=== PATIENT | female | born 1960 | race Caucasian/White ===

== ENCOUNTER 2016-03-11 09:17 | Emergency (ER) | payer OTHER ==
[2016-03-11] VITALS (7 sets, daily range): BP systolic 106–127; BP diastolic 41–65; PULSE 67–95; RESP 13–18; O2SAT 89–99
[~2016-03-11] VITALS: Ht 162.6 cm; Wt 50.9 kg
[~2016-03-11 09:17] MED LIST: ALBU8.5H2 INHALATION; EPIN0.3P2 IJ; FLUT16SP NS; OXYC5TAB72 PO; PRAM0.252 PO
--- NOTE | 2016-03-11 09:17 | ED.REPORT ---
HPI-Chest Pain 40 and Over Date of Service Mar 11, 2016 ED Provider: Gregory Teddy Patient is a 55 year old female with a history of stroke and CAD who presents to the ED via EMS complaining of chest pain. Associated symptoms include RUQ pain, L arm swelling, and palpitations. She reports that she recently had the flu and has had diarrhea and vomiting. She was given 4 Zofran, 324 aspirin, 1 nitro, and 50 fentanyl en route. She denies a previous MO but did have a stroke 3 yrs ago. She has a history of alcoholism and reports having a few mixed drinks last night. Nursing Notes Stated Complaint: CHEST PAIN Nursing Notes Reviewed: Yes Allergies: Coded Allergies: neomycin (Verified Allergy, Unknown, 03/11/16) Scheduled PRN Albuterol HFA (Proair HFA) 8.5 Gm Hfa.aer.ad 2 PUFFS INHALATION Q4H PRN PRN For Shortness of Breath Epinephrine (Epipen 2-Titus) 0.3 Mg/0.3 Ml Auto.injct 0.3 MG IJ PRN For Anaphyllaxis Fluticasone Propionate (Fluticasone Propionate Nasal) 16 Gm [place].susp 2 SPRAY NS BID PRN PRN allergy sx Pramipexole Dihydrochloride (Mirapex) 0.25 Mg Tablet 0.25-0.5 MG PO HS PRN PRN restless legs oxyCODONE (oxyCODONE) 5 Mg Tablet 5 MG PO Q8H PRN PRN For Pain General Time Seen by MD: 09:18 Chief Complaint Chest pain Hx Obtained From: Patient, EMS Arrived By: Ambulance Sudden in Onset?: Yes Onset Occurred: Onset unknown Risk Factors )( CAD Risk Stratification No Diabetes mellitus, No Hyperlipidemia, No Hypertension Risk factors reviewed )( TAD Risk Stratification No Hypertension, No Risk factors reviewed )( PE Risk Stratification No , No Previous DVT Risk factors reviewed Past Medical History Past Medical History Tailbone fracture hernia stroke 72% carotid artery blockage Reports: Asthma, Coronary artery disease Past Surgical History Hernia repair R ovarian surg. Reports: Tubal ligation Smoking History Current Every Day Smoker Social History Ex-fidaphnie Mayer Alcohol Use: >5 per day Drug Use: Denies drug use Ambulatory Status Independent Review of Systems Constitutional: Denies: Chills, Fever Cardiovascular: Reports: Chest pain, Palpitations GI: Reports: Abdominal pain, Diarrhea, Vomiting Musculoskeletal: Reports: Extremity swelling (L arm) Complete sys rev & neg: except as marked. Physical Exam Initial Vital Signs Vital Signs (First) Date Time Temp Pulse Resp B/P Pulse Ox O2 Delivery O2 Flow Rate FiO2 03/11/16 09:22 36.5 84 18 117/65 96 Room Air 03/11/16 10:08 3 Initial VS: Reviewed Head / Eyes: Atraumatic, Normocephalic Neck: Full range of motion Skin: Warm, Dry General/Constitutional: Well developed Appearance / Presentation: Positive: Intoxicated Respiratory / Chest: No respiratory distress Mild chest wall tenderness Cardiovascular: Heart rate NL, Regular rhythm, Heart sounds NL Tenderness/Guarding/Rebound: Positive: Guarding voluntary, Tender RUQ... Interpretation & Diagnostics Lab Results Interpretation Result Diagram: 03/11/16 0926 03/11/16 0926 Test 03/11/16 09:26 03/11/16 09:33 03/11/16 14:00 White Blood Count 8.5th/mm3 (3.8-10.1) Red Blood Count 4.34mil/mm3 (3.90-5.20) Hemoglobin 13.9g/dL (12.0-15.6) Hematocrit 41.1% (35.0-46.0) Mean Corpuscular Volume 94.7fL (81-100) Mean Corpuscular Hemoglobin 32.0pg (27.0-35.0) Mean Corpuscular Hemoglobin Concent 33.8% (32.0-37.0) Red Cell Distribution Width 13.7% (12.3-15.4) Platelet Count 215bil/L (150-400) Neutrophils (%) (Auto) 69.1% (40-74) Lymphocytes (%) (Auto) 22.7% (14-46) Monocytes (%) (Auto) 7.2% (4-12) Eosinophils (%) (Auto) 0.6% (0-5) Basophils (%) (Auto) 0.2% (0-3) D-Dimer 0.5mg/L (<0.50) Sodium Level 136mEq/L (134-144) Potassium Level 3.9mEq/L (3.5-5.2) Chloride Level 100mEq/L (97-108) Carbon Dioxide Level 25mmol/L (18-29) Blood Urea Nitrogen 10mg/dL (6-24) Creatinine 0.55mg/dL (0.57-1.00) Estimat Glomerular Filtration Rate 164mL/min (>59) Glucose Level 114mg/dL (60-99) Calcium Level 8.4mg/dL (8.5-10.1) Magnesium Level 1.9mg/dL (1.6-2.6) Total Bilirubin 0.2mg/dL (0.0-1.2) Aspartate Amino Transf (AST/SGOT) 46U/L (0-50) Alanine Aminotransferase (ALT/SGPT) 66U/L (0-32) Alkaline Phosphatase 41U/L (25-150) Total Protein 6.6g/dL (6.4-8.4) Albumin 3.8g/dL (3.4-5.0) Lipase 12U/L (13-60) Acetaminophen Level < 15.0ug/mL Rx (10-25) Lactic Acid Level 0.8mmol/L (0.4-2.0) Alcohol, Quantitative < 10mg/dL (0-10) Total Creatine Kinase 74U/L (21-215) Troponin T < 0.010ug/L (0.0-0.011) ECG Interpretation ECG Interpretation: Sinus rate 69 no abnormalities Time: 09:37 Interpreted by: ED physician ECG Interpretation: Sinus rate 71. No abnormalities Time: 13:33 Interpreted by: ED physician X-Ray Chest Interpretation Chest Xray Interpretation: IMPRESSION: No acute cardiopulmonary findings. Dictated by: Narda Plascencia M.D. on 03/11/2016 at 10:06 Approved by: Narda Plascencia M.D. on 03/11/2016 at 10:06 View: Portable, 1 view Interpretation / Wet Read by: Interpret - Radiologist CT Abd / Pelvis Interpretation IMPRESSION: 1. Circumferential wall thickening involving several proximal loops of small bowel compatible with nonspecific enteritis. 2. Hepatic steatosis. 3. Moderate fecal loading throughout the colon. Please correlate with clinical data. 4. No free fluid or air. 5. No dilated loops of bowel. 6. Visualized appendix is normal. Dictated by: Annita Mendenhall MD, PhD on 03/11/2016 at 12:58 Approved by: Annita Mendenhall MD, PhD on 03/11/2016 at 12:58 Study type: Abdominal CT IV contrast Interpretation / Wet Read by: Interpret - Radiologist Re-Eval/Medical Decision Med Decision/Clinical Course Chest pain and abdominal pain of unclear etiology, consistent with acute MO or pulmonary embolism. Patient seemed to be more focused on her chest however recurrently her abdomen seemed to be tender on exam. CT unremarkable. Patient will be discharged. Overall she is feeling better and agrees with the discharge plan. Return precautions given Time of Eval: 10:13 Re-Evaluation/Progress Note: Rechecked patient. She continues to deny cough or cold symptoms and still endorses chest and abdominal pain. Time of Eval: 15:00 Patient Status: Condition improved Re-Evaluation/Progress Note: Patient is able to ambulate without assistance or shortness of breath. Discussed plan fro discharge. Patient understands and agrees with plan. All questions addressed at this time. Counseled Regarding: Diagnosis, Lab results, Need for follow-up, When/why to return to ED Discharge & Departure Primary Impression: Chest pain Additional Impression: Abdominal pain Disposition: Home Discharge Condition All VS Reviewed: Yes Condition: Improved Additional Instructions: We are so sorry that you are having pain. Overall no life-threatening cause can be found for your symptoms. Continue taking your other medications as prescribed. Follow-up with your regular doctor for discussion of cardiac stress testing and further evaluation of your symptoms. Return to ER as needed if worse. Referrals: Carmel Medellin (PCP) Scribe Attestation Portions of this note were transcribed by Jenny Juárez. I, Dr. Jenkins personally performed the history, physical exam and medical decision-making; I reviewed and confirmed the accuracy of the information in the transcribed note. Signed by: Jenny Juárez 03/11/16, 1531 copies to: Carmel Medellin Timothy S DO Mar 11, 2016 09:17 JENNY JUÁREZ Mar 11, 2016 09:30
[2016-03-11] MEDS ORDERED: 0.9% Sodium Chloride 1,000 ML IV ONE (09:23)
[2016-03-11] MEDS ORDERED: Alum-Mag Hydrox-Simeth 30 mL Suspension PO ONE (09:25)
[2016-03-11] MEDS ORDERED: Ondansetron 2 mg/mL 2 mL Inj IVPUSH PRN (09:25)
[2016-03-11 09:34] LABS: BASOPHILS % (AUTO) 0.2 % (0-3); EOSINOPHILS % (AUTO) 0.6 % (0-5); MONOCYTES % (AUTO) 7.2 % (4-12); Mean Corpuscular Volume 94.7 fL (81-100); NEUTROPHILS % (AUTO) 69.1 % (40-74); Platelet Count 215 bil/L (150-400)
--- NOTE | 2016-03-11 10:08 | DRSVH ---
PROCEDURE: X-RAY CHEST ONE VIEW, PORTABLE ([id number]) INDICATIONS: chest pain TECHNIQUE: One view of the chest was acquired. COMPARISON: [facility], , CHEST 1VW (PORTABLE), 11/29/2013, 8:56. FINDINGS: Surgical changes and devices: None. Lungs and pleura: No pleural effusions or pneumothorax. Lungs are clear. Mediastinum: Mediastinal contours appear normal. Heart size is normal. Bones and chest wall: No suspicious bony lesions. Overlying soft tissues appear unremarkable. IMPRESSION: No acute cardiopulmonary findings. Dictated by: Narda Plascencia M.D. on 03/11/2016 at 10:06 Approved by: Narda Plascencia M.D. on 03/11/2016 at 10:06
[2016-03-11 10:51] LABS: Lipase 12 U/L (13-60); Magnesium 1.9 mg/dL (1.6-2.6)
[2016-03-11 10:57] LABS: TROPONIN T < 0.010 ug/L (0.0-0.011)
--- NOTE | 2016-03-11 12:59 | DRSVH ---
PROCEDURE: CT ABDOMEN AND PELVIS WITH CONTRAST ([id number]) INDICATIONS: upper abd pain TECHNIQUE: After the administration of intravenous contrast, 5 mm thick sections acquired from the diaphragm to the symphysis. 5 mm coronal and sagittal reformats were acquired. For radiation dose reduction, the following was used: automated exposure control, adjustment of mA and/or kV according to patient siz e. COMPARISON: None. FINDINGS: Image quality: Excellent. ABDOMEN: Lung bases: Atelectasis noted in the dependent portions of the lung bases. Heart size is normal. Solid organs: Liver and spleen are normal in size and enhancement. Diffuse fatty infiltration of th e liver is noted. Gallbladder is within normal limits. Biliary system is non dilated. Pancreas enha nces normally. No adrenal nodules. Kidneys demonstrate normal size and enhancement, without hydrone phrosis. Small left renal cyst is noted. Peritoneum and bowel: Bowel loops demonstrate normal wall caliber. Circumferential wall thickening i nvolving several proximal loops of small bowel noted compatible with nonspecific enteritis. Moderate fecal loading noted throughout the colon. No free fluid or air. Visualized appendix is normal. Nodes and vessels: No retroperitoneal or mesenteric adenopathy by size criteria. Aorta and inferior vena cava are normal in size. Scattered atherosclerotic calcifications are noted in the abdominal an d pelvic vasculature. Miscellaneous: No ventral hernias. PELVIS: Genitourinary: Bladder wall thickness is normal. Miscellaneous: No inguinal hernias or adenopathy. Bones: No suspicious bony lesions. No vertebral body compression fractures. Degenerative disc disea se and facet arthropathy are noted in the spine. IMPRESSION: 1. Circumferential wall thickening involving several proximal loops of small bowel compatible with no nspecific enteritis. 2. Hepatic steatosis. 3. Moderate fecal loading throughout the colon. Please correlate with clinical data. 4. No free fluid or air. 5. No dilated loops of bowel. 6. Visualized appendix is normal. Dictated by: Annita Mendenhall MD, PhD on 03/11/2016 at 12:58 Approved by: Annita Mendenhall MD, PhD on 03/11/2016 at 12:58
[2016-03-11 14:42] LABS: TROPONIN T < 0.010 ug/L (0.0-0.011)
[2016-03-11 14:52] LABS: Creatine Kinase 74 U/L (21-215)
[2016-03-28] MEDS ORDERED: OXYC5TAB72 PO (16:53)
== END 2016-03-11 15:36 | disposition home or self-care (01) ==
LOC: SED 09:17
DX: R07.89 Other chest pain (principal); R10.11 Right upper quadrant pain; M79.89 Other specified soft tissue disorders; R00.2 Palpitations; R11.10 Vomiting, unspecified; R19.7 Diarrhea, unspecified; I25.10 Atherosclerotic heart disease of native coronary artery without angina pectoris; J45.909 Unspecified asthma, uncomplicated; F17.200 Nicotine dependence, unspecified, uncomplicated; Z86.73 Personal history of transient ischemic attack (TIA), and cerebral infarction without residual deficits; Z88.1 Allergy status to other antibiotic agents
CPT/HCPCS: 36415; 71010; 74177; 80053; 81002; 82550; 83605; 83690; 83735; 84484; 85025; 85379; 93005; 96361; 96374; 99285; G0480; J2405; J7030; Q9967

== ENCOUNTER 2016-03-21 07:39 | Inpatient (IN) | payer MEDICAID, OTHER ==
[~2016-03-21] VITALS: Ht 162.6 cm; Wt 50.9 kg
[2016-03-21 07:50] VITALS: BP 121/72; PULSE 95; RESP 14; O2SAT 99
--- NOTE | 2016-03-21 07:51 | ED.REPORT ---
HPI-Altered Mental Status Date of Service Mar 21, 2016 ED Provider: Sundar Keating MD Patient is a 55-year-old female with a hx of EtOH abuse who presents to the ED via EMS after she [place] unconscious [place] the [place] ride just [employer]. Patient left the ED last night after being treated for alcohol and drug overdose and since leaving states she has not had anything to drink but took an unknown dose of lorazepam. Medics report the smell of EtOH and the patient has decreased responsiveness. Nursing Notes Stated Complaint: INTOXICATED Chief Complaint: Substance Abuse Nursing Notes Reviewed: Yes Allergies: Coded Allergies: neomycin (Verified Allergy, Unknown, 03/18/16) Scheduled PRN Albuterol HFA (Proair HFA) 8.5 Gm Hfa.aer.ad 2 PUFFS INHALATION Q4H PRN PRN For Shortness of Breath Epinephrine (Epipen 2-Titus) 0.3 Mg/0.3 Ml Auto.injct 0.3 MG IJ PRN For Anaphyllaxis Fluticasone Propionate (Fluticasone Propionate Nasal) 16 Gm [place].susp 2 SPRAY NS BID PRN PRN allergy sx Pramipexole Dihydrochloride (Mirapex) 0.25 Mg Tablet 0.25-0.5 MG PO HS PRN PRN restless legs oxyCODONE (oxyCODONE) 5 Mg Tablet 5 MG PO Q8H PRN PRN For Pain General Time Seen by MD: 07:44 Chief Complaint Decreased responsiveness Hx Obtained From: Patient, EMS Unable to Obtain Hx: Intoxicated Arrived By: Ambulance Sudden in Onset?: Yes Onset Occurred: 5 - 8 hours ago Context of Onset: EtOH use, Illicit drug use Symptom Duration: Since onset Severity: Current: No pain currently Severity: Maximum: No pain Recent Healthcare: Recent doctor visit, Recent hospitalization Similar Sx Previous: Yes Past Medical History Past Medical History Alcohol abuse Tailbone fracture Hernia Stroke 72% carotid artery blockage Reports: Asthma, Coronary artery disease Past Surgical History Hernia repair R ovarian surg. Reports: Tubal ligation Smoking History Current Every Day Smoker Social History Ex-fidaphnie Mayer Alcohol Use: >5 per day Drug Use: Denies drug use Ambulatory Status Independent Review of Systems Unable to Obtain ROS Intoxicated Physical Exam Initial Vital Signs Vital Signs (First) Date Time Temp Pulse Resp B/P Pulse Ox O2 Delivery O2 Flow Rate FiO2 03/21/16 07:50 36.4 95 14 121/72 99 Room Air Initial VS: Reviewed ENT: Mucous membranes moist, Conjunctiva normal, No scleral icterus Abdomen / GI: Soft, Non-tender, No guarding, No rebound, No distention Extremities: Vascular intact, Neuro intact, No swelling, No tenderness Skin: Warm, Dry, No cyanosis Alertness: Positive: Disoriented, Sleeping but arousable Head / Eyes: Atraumatic, Normocephalic Neck: Atraumatic, Supple, No meningismus, Full range of motion, No adenopathy, No swelling, Non-tender Respiratory / Chest: Atraumatic, Breath sounds NL, Breath sounds = bilat, No respiratory distress, No rales, No rhonchi, No wheezing Cardiovascular: Heart rate NL, Regular rhythm, Heart sounds NL, No gallop, No murmurs, No rubs Mental Status: Positive: Confused, Lethargic Speech: Positive: Garbled, Slow Interpretation & Diagnostics Lab Results Interpretation Result Diagram: 03/21/16 0759 03/21/16 1358 Test 03/21/16 07:59 03/21/16 08:48 03/21/16 10:59 03/21/16 13:58 White Blood Count 8.6th/mm3 (3.8-10.1) Red Blood Count 5.06mil/mm3 (3.90-5.20) Hemoglobin 16.4g/dL (12.0-15.6) Hematocrit 48.1% (35.0-46.0) Mean Corpuscular Volume 95.1fL (81-100) Mean Corpuscular Hemoglobin 32.4pg (27.0-35.0) Mean Corpuscular Hemoglobin Concent 34.1% (32.0-37.0) Red Cell Distribution Width 13.7% (12.3-15.4) Platelet Count 145bil/L (150-400) Neutrophils (%) (Auto) 68.9% (40-74) Lymphocytes (%) (Auto) 24.2% (14-46) Monocytes (%) (Auto) 4.6% (4-12) Eosinophils (%) (Auto) 1.6% (0-5) Basophils (%) (Auto) 0.5% (0-3) Potassium Level 3.5mEq/L (3.5-5.2) Chloride Level 114mEq/L (97-108) Carbon Dioxide Level 21mmol/L (18-29) Blood Urea Nitrogen 7mg/dL (6-24) Creatinine 0.45mg/dL (0.57-1.00) Estimat Glomerular Filtration Rate 207mL/min (>59) Glucose Level 82mg/dL (60-99) Calcium Level 8.8mg/dL (8.5-10.1) Total Bilirubin 0.5mg/dL (0.0-1.2) Aspartate Amino Transf (AST/SGOT) 75U/L (0-50) Alanine Aminotransferase (ALT/SGPT) 59U/L (0-32) Alkaline Phosphatase 45U/L (25-150) Total Protein 7.8g/dL (6.4-8.4) Albumin 4.1g/dL (3.4-5.0) Salicylates Level < 3.0ug/mL (30-250) Acetaminophen Level < 15.0ug/mL Rx (10-25) Alcohol, Quantitative 319mg/dL (0-10) Urine Color Straw (YELLOW) Urine Appearance Hazy (CLEAR,HAZY) Urine pH 5.5 (5.0-8.0) Urine Specific [place] 1.005 (1.003-1.035) Urine Protein Negativemg/dL (NEG,TRACE) Urine Glucose (UA) Negativemg/dL (NEGATIVE) Urine Ketones Negativemg/dL (NEGATIVE) Urine Occult Blood Negative (NEGATIVE) Urine Nitrite Negative (NEGATIVE) Urine Bilirubin Negative (NEGATIVE) Urine Urobilinogen Normalmg/dL (NORMAL) Urine Leukocyte Esterase Negative (NEGATIVE) Urine RBC 0-2/hpf (0-2) Urine WBC 0-5/hpf (0-5) Urine Epithelial Cells Occasional/hpf (NONE-MOD) Urine Crystals None seen (NONE SEEN) Urine Bacteria Few/hpf (NONE-FEW) Urine Hyaline Casts Occasional/lpf (NONE) Urine Granular Casts None seen (NONE SEEN) Urine Waxy Casts None seen (NONE SEEN) Urine Red Blood Cell Casts None seen (NONE SEEN) Urine White Blood Cell Casts None seen (NONE SEEN) Urine Mucus None seen (None Seen) Urine Trichomonas None seen (NONE SEEN) Urine Yeast None (NONE SEEN) Urinalysis Comment None Urine Culture Reflexed Not indicated Sodium Level 152mEq/L (134-144) Lactic Acid Level 1.8mmol/L (0.4-2.0) ECG Interpretation ECG Interpretation: Q waves in V1-V3 unchanged from previous ECG Time: 08:15 Interpreted by: ED physician Normal ECG Interpretation: Normal sinus rhythm (91), No acute ischemic changes X-Ray Chest Interpretation Chest Xray Interpretation: IMPRESSION: No pneumonia found, source of altered mental status is not seen. Dictated by: Hiren Ruiz M.D. on 03/21/2016 at 9:24 Approved by: Hiren Ruiz M.D. on 03/21/2016 at 9:25 View: Portable Interpretation / Wet Read by: Interpret - Radiologist CT Head Interpretation IMPRESSION: Limited study. No acute intracranial findings. Dictated by: Narda Plascencia M.D. on 03/21/2016 at 8:37 Approved by: Narda Plascencia M.D. on 03/21/2016 at 8:40 Study: Head CT no contrast Interpretation / Wet Read by: Interpret - Radiologist Re-Eval/Medical Decision Med Decision/Clinical Course 55-year-old female history of alcohol abuse presenting found down intoxicated earlier this morning. Patient was seen yesterday and intubated and extubated in the ER for intoxication. CT brain normal. Vital signs stable. Lactate initially 2.1 improved to 1.8 with IV fluids. Sodium initially 150 repeat pending. Blood alcohol level 300s. Urine tox +benzos. Patient was still intoxicated at time of transfer of care to Dr. Niles Moyer. Counseled Regarding: Diagnosis, Lab results, Need for follow-up, When/why to return to ED Patient Discharge & Departure Impression: Primary Impression: Alcohol abuse Disposition: Home Discharge Condition All VS Reviewed: Yes Condition: Stable Referrals: Carmel Medellin (PCP) Scribe Attestation Portion of this note were transcribed by Дмитрий Luther. I, Dr. Keating, personally performed the history, physical exam, and medical decision-making: I reviewed and confirmed the accuracy for the information in the transcribed note. Signed by: andrea London, 03/21/16 0000 copies to: Carmel Medellin Ben M MD Mar 21, 2016 07:51 ДМИТРИЙ LUTHER Mar 21, 2016 08:11
[2016-03-21] MEDS ORDERED: 0.9% Sodium Chloride 1,000 ML IV ONE ×3 (07:59→11:45)
--- NOTE | 2016-03-21 08:41 | DRSVH ---
PROCEDURE: CT BRAIN WITHOUT CONTRAST ([id number]) INDICATIONS: altered mental status TECHNIQUE: Noncontrast 4.5 mm thick angled axial sections acquired from the foramen magnum to the vertex, with c oronal reformats. COMPARISON: [facility], CT, CT BRAIN WO CON, 03/20/2016, 17:56. FINDINGS: Image quality: Motion artifact limits evaluation. CSF spaces: Basal cisterns are patent. No extra-axial fluid collections. Ventricles are normal in size and shape. Brain: No midline shift. No intracranial masses or hemorrhage. Thompson-white matter interface is norm al. Skull and face: Calvarium and visualized facial bones are intact, without suspicious lesions. Sinuses: Visualized sinuses and mastoids are clear. IMPRESSION: Limited study. No acute intracranial findings. Dictated by: Narda Plascencia M.D. on 03/21/2016 at 8:37 Approved by: Narda Plascencia M.D. on 03/21/2016 at 8:40
[2016-03-21 08:57] LABS: BASOPHILS % (AUTO) 0.5 % (0-3); EOSINOPHILS % (AUTO) 1.6 % (0-5); MONOCYTES % (AUTO) 4.6 % (4-12); Mean Corpuscular Hemoglobin 32.4 pg (27.0-35.0); Mean Corpuscular Volume 95.1 fL (81-100); NEUTROPHILS % (AUTO) 68.9 % (40-74); Platelet Count 145 bil/L (150-400)
--- NOTE | 2016-03-21 09:26 | DRSVH ---
PROCEDURE: X-RAY CHEST ONE VIEW, PORTABLE ([id number]) INDICATIONS: altered mental status TECHNIQUE: One view of the chest was acquired. COMPARISON: [facility], CR, XR CHEST 1VW (PORTABLE), 03/20/2016, 17:40. FINDINGS: Surgical changes and devices: None. Lungs and pleura: No pleural effusions or pneumothorax. Lungs are clear. Mediastinum: Mediastinal contours appear normal. Heart size is normal. Bones and chest wall: No suspicious bony lesions. Overlying soft tissues appear unremarkable. IMPRESSION: No pneumonia found, source of altered mental status is not seen. Dictated by: Hiren Ruiz M.D. on 03/21/2016 at 9:24 Approved by: Hiren Ruiz M.D. on 03/21/2016 at 9:25
[2016-03-21 11:23] LABS: APPEARANCE,URINE HAZY (CLEAR,HAZY); COLOR,URINE STRAW (YELLOW); OCCULT BLOOD,URINE NEGATIVE (NEGATIVE); PH,URINE 5.5 (5.0-8.0); UROBILINOGEN,URINE NORMAL (NORMAL)
[2016-03-21 17:49] VITALS: BP 95/62; PULSE 90; RESP 19; O2SAT 98
[2016-03-21 20:14] VITALS: BP 98/62; PULSE 97; RESP 18; O2SAT 97
[2016-03-22 00:04] VITALS: BP 99/68; PULSE 81; RESP 17; O2SAT 98
[2016-03-22 02:34] VITALS: BP 133/77; PULSE 84; RESP 16; O2SAT 97
[2016-03-22 05:58] VITALS: BP 128/84; PULSE 78; RESP 16; O2SAT 97
[2016-03-22 10:19] VITALS: BP 131/70; PULSE 96; O2SAT 98
[2016-03-22] MEDS ORDERED: LORazepam 1 mg Tablet PO ONE (12:45)
[2016-03-22] MEDS ORDERED: Benzocaine-Menthol Lozenge 2/Pkg MT PRN (14:00)
[2016-03-22] MEDS ORDERED: Alum-Mag Hydrox-Simeth 30 mL Suspension PO PRN (14:00)
[2016-03-22] MEDS ORDERED: Magnesium Hydroxide 10 mL Oral Concentration PO PRN (14:00)
[2016-03-22] MEDS ORDERED: ZOLP5TAB6 (15:03)
[2016-03-22] MEDS ORDERED: ONDA4TAB12 (15:03)
[2016-03-22] MEDS ORDERED: CHLO25CA10 (15:03)
[2016-03-22] MEDS ORDERED: ALBU18HF (15:03)
[2016-03-22] MEDS ORDERED: CHLO25CA10 PO (15:37)
[2016-03-22] MEDS ORDERED: ONDA4TAB9 PO (15:37)
[2016-03-22] MEDS ORDERED: ZOLP5TAB6 PO (15:37)
[2016-03-22] MEDS ORDERED: FLUT9.9S NS (15:37)
[2016-03-22] MEDS ORDERED: ALBU18HF INH (15:37)
--- NOTE | 2016-03-22 15:53 | NUR ---
NURS Admit Note Pt found intoxicated and unresponsive on sidewalk. Brought to ED by EMS on 03/21/16 at 0730, where she was temporarily intubated. Brought to [facility] from ED via wheelchair 03/22/16 at 1400, no longer intoxicated, VSS. Pt appeared somewhat unkempt, tired, and unsteady on feet; polite, cooperative, and responded positively to humor. Pt stated "they had me in that white room for hours, it just gets to you." Rated depression 10/10; anxiety 10/10; and positive for suicidal ideation without plan. Pt voiced no shinto preference but was interested in speaking with chaplan. Pt had been in recovery for 14 years until 1 month ago when she began drinking heavily. Pt has been involved in AA and NA in past and has an AA sponsor. Oriented to unit. Pt is currently in day room chatting with fellow pt.
[2016-03-22] MEDS ORDERED: PRAM0.256 (16:24)
[2016-03-22] MEDS ORDERED: CYCL10TA9 (16:24)
[2016-03-22] MEDS ORDERED: chlordiazePOXIDE 25 mg Capsule PO SCH (17:30)
[2016-03-22] MEDS: chlordiazePOXIDE 25 mg Capsule PO SCH ×2 (17:51→21:01)
--- NOTE | 2016-03-22 18:18 | NUR ---
S Day Shift Pt admitted to the unit at approx 13:43. Pt completed the admission process without incident. Pt maintained behavioral control throughout the shift. Pt affect appears mostly flat, somewhat brighter when engaged with staff and peers. Pt spends most of the shift sitting quietly in the dining room and engaging lightly with peers. Pt is appropriate with staff and peers when active on the unit. Pt attended dinner and ate approx 75% of meal.
[2016-03-23] MEDS: chlordiazePOXIDE 25 mg Capsule PO SCH ×4 (00:12→17:17)
[2016-03-23] MEDS ORDERED: chlordiazePOXIDE 25 mg Capsule PO PRN (05:30)
[2016-03-23 05:36] VITALS: BP 105/70; PULSE 65; RESP 14
--- NOTE | 2016-03-23 05:44 | NUR ---
Nursing Noc Pt pleasant and participating in evening activities appropriately. Zero obvious withdrawal symptoms noted, but patient describing DELR IO, and skin discomfort with episode of nausea. VS at 2030 demonstrate at 120/82, pulse 104. Pt receiving Librium scheduled and PRN. Pt positive for seizure disorder r/t withdrawal from ETOH in the past. Pt was intubated for short period in ED prior to admission. Pt reports recently x one month of drinking at least five drinks daily. Pt reportedly clean and sober x 14 years. Continuing to monitor, mood, behavior, emotional state, sleep quality and medications. BHCP
--- NOTE | 2016-03-23 06:03 | NUR ---
Pt out on unit during evening. Asleep [id number]. Pt observed every 15 minutes as ordered.
--- NOTE | 2016-03-23 11:37 | NUR ---
NURS NOTE DAY 03/23/16 At start of shift, pt and pt's room smelled of smoke, baby powder on floor. Staff confronted pt who initially denied having smoked. Staff searched room and found six cigarettes in pt information packet but could not locate pattern changer and repairer/matches. When asked about pattern changer and repairer, pt initially reported "I just chewed the cigarettes," upon further inquiry pt stated "I used three little match heads and a piece of flint that I flushed down the toilet." Staff had patient turn pockets inside out, all were empty. Where about of pattern changer and repairer/matches unknown as of 1150. Will continue to search Pt endorsed anxiety and tactile hallucinations, stated "my skin feels creepy crawly." Given scheduled 25 mg librium PO at 1052. Vital signs stable and within defined limits. Will continue to monitor for s/s of withdrawal. Addendum: 03/23/16 at 1734 by FREDERICK BRAVO RN At 1400 pt stated, "I want to get out of here. This place is making me crazy." Spoke with Dr. Solano who said that he would consider discharging her tomorrow morning but not tonight. Discussed the option of DMHP evaluation with pt. After some deliberation and frustration pt agreed to stay until tomorrow.
[2016-03-23 12:24] VITALS: BP 112/78; PULSE 97; RESP 16
[2016-03-23] MEDS ORDERED: Magnesium Hydroxide 10 mL Oral Concentration PO PRN (13:55)
[2016-03-23] MEDS ORDERED: Alum-Mag Hydrox-Simeth 30 mL Suspension PO PRN (13:55)
[2016-03-23] MEDS ORDERED: Benzocaine-Menthol Lozenge 2/Pkg PO PRN (13:55)
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
[2016-03-23] MEDS ORDERED: hydrOXYzine Pamoate 25 mg Capsule PO PRN (16:40)
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
--- NOTE | 2016-03-23 19:37 | NUR ---
OBSERVATIONS 0900 TO 2130 Pt was pleasant, social, and cooperative, flat affect, most of the day. Pt did get agitated and anxious and stated that she was frustrated and wished to leave AMA, after speaking with the nurse, pt calmed. Maintained Q15 checks for safety as directed.
[2016-03-24 01:00] VITALS: BP 114/83; PULSE 69; RESP 14
[2016-03-24] MEDS: chlordiazePOXIDE 25 mg Capsule PO SCH ×3 (01:41→11:34)
--- NOTE | 2016-03-24 06:16 | NUR ---
Nursing note: mini shifter Patient appears to be sleeping soundly on safety checks. Patient was awakened by staff to check VS. Bp 114/83 Pulse 69. Patient offers no complaints, appears to be sleeping on all subsequent safety checks.
[2016-03-24 06:30] VITALS: BP 117/76; PULSE 76; RESP 14
[2016-03-24 10:56] VITALS: BP 125/76; PULSE 52; RESP 18
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
--- NOTE | 2016-03-24 12:59 | NUR ---
Discharge Patient ambulated from unit en-route to bus station. Patient refused transportation assistance, stating that she can "stay with my friend in [place] for three days to figure out where I am going to live". Patient reporting that she sleep really well last night, "which was good, you know how sleep deprivation can make you feel like your going crazy". Patient reporting anxiety 09/02, "because I don't know where I will be alf, plus being here makes me very anxious". Patient nutritional intake good. Denies thoughts of self harm, SI/HI, and reports depression as "low". Patient complaining about chacon on unit "being too white" and "the lights are so bright". "You guys need to paint and make things more welcoming here". Patient refused to sign competency paperwork, "I had my rights taken away yesterday when I wanted to leave and was told I couldn't unless I was evaluated-so I won't sign that". All other paperwork signed. Discharge instructions/medications reviewed with patient prior to discharge. All questions addressed. Patient belongings, discharge instructions and home medications in hand. No prescriptions written.
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
--- NOTE | 2016-03-24 13:33 | PCM.DIMED ---
Discharge Instructions Date of Service Mar 24, 2016 Dates of Hospitalization Mar 22, 2016 at 13:25 Discharge Diagnosis Discharge Diagnosis [place] I: 1. Substance-induced mood disorder, alcohol. 2. Alcohol abuse. [place] II: Deferred. [place] III: Client reports back pain and scoliosis. [place] IV: Alcoholic lifestyle. [place] V: Current Global Assessment of Functioning equal to 45 Medication Instructions None Diet No restrictions Activity No restrictions Patient Instructions Followup Plan Disposition: Patient to be discharged to a friend's home. She plans to attend 90 AA meetings in 90 days. She tends to seek out treatment at [facility] and will do a walk-in session this week. Discharge Diet: No restrictions Discharge Activity: No restrictions Erasmo Solano MD Mar 24, 2016 13:33
[2016-03-28] MEDS ORDERED: OXYC5TAB72 PO (16:53)
== END 2016-03-24 14:00 | disposition home or self-care (01) | DRG 897 ==
LOC: SED 07:39 → MHC 03-22 13:25
PROVIDERS: ADMIT Psychiatry & Neurology Psychiatry; ATTEND Psychiatry & Neurology Psychiatry
DX: F10.14 Alcohol abuse with alcohol-induced mood disorder (principal); F17.210 Nicotine dependence, cigarettes, uncomplicated; Z59.0 Homelessness; Z91.410 Personal history of adult physical and sexual abuse; Z91.5 Personal history of self-harm; Y90.8 Blood alcohol level of 240 mg/100 ml or more; F10.129 Alcohol abuse with intoxication, unspecified; T51.0X1A Toxic effect of ethanol, accidental (unintentional), initial encounter

== ENCOUNTER 2016-03-29 01:08 | Emergency (ER) | payer OTHER ==
[~2016-03-29] VITALS: Ht 162.6 cm; Wt 59.1 kg
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
[~2016-03-29 01:08] MED LIST changes: +ALBU18HF INH; -ALBU8.5H2 INHALATION; -FLUT16SP NS; +FLUT9.9S NS; +ONDA4TAB9 PO
[2016-03-29 01:30] VITALS: BP 104/65; PULSE 100; RESP 16; O2SAT 95
[2016-03-29 01:33] LABS: BASOPHILS % (AUTO) 0.5 % (0-3); EOSINOPHILS % (AUTO) 2.2 % (0-5); MONOCYTES % (AUTO) 7.1 % (4-12); Mean Corpuscular Hemoglobin 32.2 pg (27.0-35.0); Mean Corpuscular Volume 96.5 fL (81-100); NEUTROPHILS % (AUTO) 37.3 % (40-74); Platelet Count 171 bil/L (150-400)
[2016-03-29] MEDS ORDERED: Haloperidol 5 mg/mL Inj IVPUSH ONE (01:35)
[2016-03-29 01:50] VITALS: BP 107/68; PULSE 88; RESP 14; O2SAT 95
[2016-03-29] MEDS: 0.9% Sodium Chloride 1,000 ML IV SCH ×2 (02:20→03:01)
[2016-03-29 03:10] VITALS: BP 111/55; PULSE 83; RESP 14; O2SAT 93
[2016-03-29 04:10] VITALS: BP 115/64; PULSE 95; RESP 20; O2SAT 99
[2016-03-29 05:42] VITALS: BP 105/65; PULSE 78; RESP 12; O2SAT 98
[2016-03-29 11:12] VITALS: BP 115/64; PULSE 87; RESP 16; O2SAT 97
== END 2016-03-29 11:23 | disposition home or self-care (01) ==
LOC: SED 01:08
DX: F10.120 Alcohol abuse with intoxication, uncomplicated (principal); J45.909 Unspecified asthma, uncomplicated; F17.200 Nicotine dependence, unspecified, uncomplicated; Z79.52 Long term (current) use of systemic steroids; Z88.1 Allergy status to other antibiotic agents
CPT/HCPCS: 36415; 51702; 80053; 81025; 82075; 84443; 85025; 93005; 96361; 96374; 99285; G0480; J1630; J7030

== ENCOUNTER 2016-03-31 08:24 | Emergency (ER) | payer OTHER ==
[~2016-03-31] VITALS: Ht 162.6 cm; Wt 53.2 kg
[2016-03-31 08:26] VITALS: BP 119/81; PULSE 114; RESP 14; O2SAT 94
[2016-03-31] MEDS ORDERED: Albuterol-Ipratropium 3 mL Inhalation Solution ONE (08:50)
[2016-03-31] MEDS ORDERED: Albuterol-Ipratropium 3 mL Inhalation Solution NEB ONE (08:55)
--- NOTE | 2016-03-31 09:04 | ED.REPORT ---
HPI-General Illness Date of Service Mar 31, 2016 ED Provider: Rickey Baca DO Pt is a 55 y.o. female who presents to the ED accompanied by her friend c/o a productive cough, green. Pt arrives to the ED highly intoxicated and endorses to ETOH use prior to arrival. She also vaguely endorses SI with no active plan. Pt reports drinking 750ml of vodka every day and states she would like treatment for her ETOH abuse but this is not the primary reason for coming into the ED. Upon examination pt repeats that "it hurts" when her back and abdomen are palpated. Pt has been seen in the ED six times since February 2016primarily for ETOH abuse. Pt was also admitted on 03/21/16 for SI and ETOH abuse, she was discharged on 03/24/15 and upon discharge agreed to 90 days of AA and to seek care with [facility]. Pt is not a great historian due to intoxication. Nursing Notes Stated Complaint: COUGHING Chief Complaint: General Complaint Nursing Notes Reviewed: Yes Allergies: Coded Allergies: neomycin (Verified Allergy, Unknown, 03/18/16) Scheduled PRN Albuterol Sulfate (Ventolin HFA Inhaler) 200 Puff/18 Gm Inhaler 2 PUFF INH Q4 PRN PRN For Wheezing Epinephrine (Epipen 2-Titus) 0.3 Mg/0.3 Ml Auto.injct 0.3 MG IJ PRN For Anaphyllaxis Lorazepam (Ativan) 2 Mg Tablet 2 MG PO TID PRN PRN For Anxiety One tab q6hrs on day one, then one half tab q6 hrs x48 hrs then one half tab BID x48 hrs Ondansetron ODT (Zofran ODT) 4 Mg Tablet 4 MG PO Q4H PRN PRN For Nausea Pramipexole Dihydrochloride (Mirapex) 0.25 Mg Tablet 0.25-0.5 MG PO HS PRN PRN restless legs oxyCODONE (oxyCODONE) 5 Mg/5 Ml Solution 5 MG PO Q4H PRN PRN For Pain Miscellaneous Medications Fluticasone Propionate (Flonase Allergy Relief) 50 Mcg/Actuation [place].susp 9.9 ML NS oxyCODONE (oxyCODONE) 5 Mg Tablet 5 MG PO General Time Seen by MD: 09:03 Chief Complaint Cough Hx Obtained From: Patient Unable to Obtain Hx: Patient condition, Intoxicated Arrived By: Walk-in Onset Occurred: Onset unknown Location: : Abdomen: Back Recent Healthcare: Recent hospitalization Past Medical History Past Medical History Alcohol abuse with prior withdrawal seizures Depression with prior suicide attempt Substance-induced mood disorder, alcohol. Tailbone fracture chronic back pain and scoliosis Reports: Asthma Past Surgical History Hernia repair R ovarian surg Right ring trigger release Reports: Tubal ligation Smoking History Current Every Day Smoker Social History Ex-lamonte Mayer Alcohol Use: >5 per day Drug Use: Denies drug use Other Social History: Local resident Ambulatory Status Independent Review of Systems ETOH intoxication Unable to Obtain ROS Patient condition, Intoxicated Full Review of Systems Respiratory: Reports: Prod cough, green GI: Reports: Abdominal pain Musculoskeletal: Reports: Back pain Complete sys rev & neg: except as marked. Physical Exam Vital Signs Initial VS: Reviewed Head / Eyes: Atraumatic, Normocephalic Extremities: Vascular intact, Neuro intact Skin: Warm, Dry, No cyanosis Appearance / Presentation: Positive: Intoxicated (Smells of ETOH) Difficult to arouse Respiratory / Chest: Atraumatic, No respiratory distress Coarse scattered lung sounds Cardiovascular: Heart rate NL, Regular rhythm, Heart sounds NL, No gallop, Peripheral circulation NL Abdomen: Atraumatic, Soft Tenderness/Guarding/Rebound: Positive: Tender diffuse Pt becomes agitated upon palpation Cannot appreciate any focal areas of tenderness Lower Extremity / Pelvis / MS: Atraumatic, No swelling, No erythema, Neurologic intact, Vascular intact, No edema Abnormal Thinking / Perception: Positive: Suicidal, no plan (vaguely endorses) Interpretation & Diagnostics Lab Results Interpretation Test 03/31/16 08:59 03/31/16 12:48 White Blood Count 9.1th/mm3 (3.8-10.1) Red Blood Count 4.48mil/mm3 (3.90-5.20) Hemoglobin 14.5g/dL (12.0-15.6) Hematocrit 42.5% (35.0-46.0) Mean Corpuscular Volume 94.9fL (81-100) Mean Corpuscular Hemoglobin 32.4pg (27.0-35.0) Mean Corpuscular Hemoglobin Concent 34.1% (32.0-37.0) Red Cell Distribution Width 14.8% (12.3-15.4) Platelet Count 200bil/L (150-400) Neutrophils (%) (Auto) 72.1% (40-74) Lymphocytes (%) (Auto) 16.1% (14-46) Monocytes (%) (Auto) 11.1% (4-12) Eosinophils (%) (Auto) 0.3% (0-5) Basophils (%) (Auto) 0.2% (0-3) Sodium Level 147mEq/L (134-144) Potassium Level 3.5mEq/L (3.5-5.2) Chloride Level 107mEq/L (97-108) Carbon Dioxide Level 24mmol/L (18-29) Blood Urea Nitrogen 3mg/dL (6-24) Creatinine 0.48mg/dL (0.57-1.00) Estimat Glomerular Filtration Rate 192mL/min (>59) Glucose Level 159mg/dL (60-99) Calcium Level 8.6mg/dL (8.5-10.1) Magnesium Level 1.9mg/dL (1.6-2.6) Total Bilirubin 0.2mg/dL (0.0-1.2) Aspartate Amino Transf (AST/SGOT) 59U/L (0-50) Alanine Aminotransferase (ALT/SGPT) 67U/L (0-32) Alkaline Phosphatase 47U/L (25-150) Total Protein 7.3g/dL (6.4-8.4) Albumin 3.9g/dL (3.4-5.0) Thyroid Stimulating Hormone (TSH) 0.692uIU/mL (0.450-4.500) Alcohol, Quantitative 277mg/dL (0-10) Lactic Acid Level 1.6mmol/L (0.4-2.0) General Lab Results Interp 2: Alcohol level elevated X-Ray Chest Interpretation Chest Xray Interpretation: IMPRESSION: No acute cardiopulmonary disease. Dictated by: Yonis Santacruz M.D. on 03/31/2016 at 9:41 Approved by: Yonis Santacruz M.D. on 03/31/2016 at 9:42 Re-Eval/Medical Decision Med Decision/Clinical Course 55-year-old female for history of alcohol abuse and repeated ER visits for detox presents here for the same. She was [facility] to [facility] all of her medications prescribed at their request, including a very small amount of her chronic pain medication as she did not have any. She did have a cough and wheeziness upon presentation but was not hypoxic or in any respiratory distress. She received a breathing treatment here and was feeling much better. Source of Hx: Old records Time of Eval: 09:33 Re-Evaluation/Progress Note: Pt rechecked. Pt was sleeping and difficult to arouse. Physical exam performed. Time of Eval: 14:27 Re-Evaluation/Progress Note: Pt rechecked. Discussed medications, pt states that she does not have any of her oxycodone or pramipexole. Discussed plan for discharge and to follow-up with [facility] directly after discharge. Pt understands and agrees with plan. Counseled Regarding: Diagnosis, Lab results, Need for follow-up, When/why to return to ED Discharge & Departure Primary Impression: Alcohol intoxication Additional Impressions: Alcohol abuse Spinal stenosis Disposition: Home Discharge Condition All VS Reviewed: Yes Condition: Stable Additional Instructions: Thank you for entrusting us with your care today. Your examination includes a physical exam, interview, chest x-ray, and consult with social worker health services. Your imaging is reassuring and does not show any serious mechanism for your cough today. [facility] will accept you, after discharge fill your prescription and go directly to the [facility]. Referrals: Carmel Medellin (PCP) Leonardo Attestation Portions of this note were transcribed by Ruddy Alba. Dr. Keven Mayers personally performed the history, physical exam and medical decision-making; I reviewed and confirmed the accuracy of the information in the transcribed note. Signed by: Leonardo Alonso, 03/31/2016 and 1723. copies to: Carmel Medellin ; [facility] Rickey Baca DO Mar 31, 2016 09:04 RUDDY ALBA Mar 31, 2016 09:10 Portions of this note were transcribed by Ruddy Alba. Dr. Keven Mayers personally performed the history, physical exam and medical decision-making; I reviewed and confirmed the accuracy of the information in the transcribed note. Signed by: Leonardo Alonso, 03/31/2016 and 1723. copies to: Carmel Medellin ; [facility] Rickey Baca DO Mar 31, 2016 09:04 RUDDY ALBA Mar 31, 2016 09:10
[2016-03-31 09:06] LABS: BASOPHILS % (AUTO) 0.2 % (0-3); EOSINOPHILS % (AUTO) 0.3 % (0-5); MONOCYTES % (AUTO) 11.1 % (4-12); Mean Corpuscular Hemoglobin 32.4 pg (27.0-35.0); Mean Corpuscular Volume 94.9 fL (81-100); NEUTROPHILS % (AUTO) 72.1 % (40-74); Platelet Count 200 bil/L (150-400)
[2016-03-31 09:07] VITALS: PULSE 132; RESP 26; O2SAT 100
[2016-03-31 09:28] LABS: Magnesium 1.9 mg/dL (1.6-2.6)
[2016-03-31] MEDS ORDERED: 0.9% Sodium Chloride 1,000 ML IV ONE ×2 (09:38→09:42)
--- NOTE | 2016-03-31 09:43 | DRSVH ---
PROCEDURE: X-RAY CHEST ONE VIEW, PORTABLE ([id number]) INDICATIONS: 55 year-old female with productive cough. TECHNIQUE: One view of the chest was acquired. COMPARISON: [facility], CR, XR CHEST 1VW (PORTABLE), 03/21/2016, 8:21. [facility], CR, XR CHEST 1VW (PORTABLE), 03/20/2016, 17:40. [facility], CR, XR CHEST 1VW (PORT ABLE), 03/11/2016, 9:30. FINDINGS: Surgical changes and devices: None. Lungs and pleura: No pleural effusions or pneumothorax. Lungs are clear. Mediastinum: Mediastinal contours appear normal. Heart size is normal. Bones and chest wall: No suspicious bony lesions. Overlying soft tissues appear unremarkable. IMPRESSION: No acute cardiopulmonary disease. Dictated by: Yonis Santacruz M.D. on 03/31/2016 at 9:41 Approved by: Yonis Santacruz M.D. on 03/31/2016 at 9:42
[2016-03-31] MEDS ORDERED: LORazepam 2 mg Tablet PO ONE (13:35)
[2016-03-31] MEDS ORDERED: LORA-305 PO (14:36)
[2016-03-31] MEDS ORDERED: OXYC5SOL11 PO (14:36)
[2016-03-31 14:42] VITALS: BP 137/87; PULSE 110; RESP 16; O2SAT 96
[2016-03-31] MEDS ORDERED: Albuterol HFA 60 Puff 8 Gm Inhaler INHALATION ONE (16:05)
[2016-03-31] MEDS ORDERED: _LORazepam 2 MG Tablet PO SCH (16:25)
[2016-03-31] MEDS ORDERED: _oxyCODONE/APAP 5-325 mg Tablet PO PRN (16:25)
[2016-03-31] MEDS ORDERED: LORazepam 1 mg Tablet PO PRN (17:30)
[2016-03-31 17:48] VITALS: BP 158/92; PULSE 102; RESP 20; O2SAT 95
[2016-03-31 20:23] VITALS: BP 153/91; PULSE 111; RESP 18; O2SAT 97
== END 2016-03-31 20:26 | disposition home or self-care (01) ==
LOC: SED 08:24
DX: F10.129 Alcohol abuse with intoxication, unspecified (principal); M48.00 Spinal stenosis, site unspecified; R45.851 Suicidal ideations; J45.909 Unspecified asthma, uncomplicated; F17.200 Nicotine dependence, unspecified, uncomplicated; Z87.828 Personal history of other (healed) physical injury and trauma; Z88.1 Allergy status to other antibiotic agents
CPT/HCPCS: 36415; 71010; 80053; 82075; 83605; 83735; 84443; 85025; 87040; 94640; 94664; 96361; 96374; 99285; G0480; J7030; J7620

== ENCOUNTER 2016-04-08 09:55 | Inpatient (IN) | payer OTHER ==
[~2016-04-08] VITALS: Ht 162.6 cm; Wt 54.8 kg
[~2016-04-08 09:55] MED LIST changes: +LORA-305 PO; +OXYC5SOL11 PO
[2016-04-08 09:58] VITALS: BP 110/94; PULSE 87; RESP 13; O2SAT 95
[2016-04-08] MEDS ORDERED: Ondansetron 2 mg/mL 2 mL Inj IVPUSH PRN ×2 (10:20→14:05)
[2016-04-08] MEDS ORDERED: 0.9% Sodium Chloride 1,000 ML IV ONE (10:20)
--- NOTE | 2016-04-08 10:25 | ED.REPORT ---
HPI-General Illness Date of Service Apr 08, 2016 ED Provider: Olena Lara MD The patient is a 55 year old female w/ a hx of EtOH abuse, bronchitis, and asthma who presents to the ED via EMS due to severe EtOH intoxication. Pt went to [facility] [place] and was too drunk for admission. She was last seen at the ED 8 days ago for similar symptoms as well as a productive cough. At the time, she expressed interest in alcohol treatment. She was admitted to [facility] 3 weeks ago (03/22 - 03/24), was discharged and has been drinking since. She does not know how much she had to drink today. Pt is unable to give any hx due to intoxication and is sleeping and slurring words upon evaluation. Nursing Notes Stated Complaint: INTOXICATED Chief Complaint: Substance Abuse Nursing Notes Reviewed: Yes Allergies: Coded Allergies: neomycin (Verified Allergy, Unknown, 03/18/16) Scheduled PRN Albuterol Sulfate (Ventolin HFA Inhaler) 200 Puff/18 Gm Inhaler 2 PUFF INH Q4 PRN PRN For Wheezing Epinephrine (Epipen 2-Titus) 0.3 Mg/0.3 Ml Auto.injct 0.3 MG IJ PRN For Anaphyllaxis Lorazepam (Ativan) 2 Mg Tablet 2 MG PO TID PRN PRN For Anxiety One tab q6hrs on day one, then one half tab q6 hrs x48 hrs then one half tab BID x48 hrs Ondansetron ODT (Zofran ODT) 4 Mg Tablet 4 MG PO Q4H PRN PRN For Nausea Pramipexole Dihydrochloride (Mirapex) 0.25 Mg Tablet 0.25-0.5 MG PO HS PRN PRN restless legs oxyCODONE (oxyCODONE) 5 Mg/5 Ml Solution 5 MG PO Q4H PRN PRN For Pain Miscellaneous Medications Fluticasone Propionate (Flonase Allergy Relief) 50 Mcg/Actuation [place].susp 9.9 ML NS oxyCODONE (oxyCODONE) 5 Mg Tablet 5 MG PO General Time Seen by MD: 10:16 Chief Complaint Other (intoxication) Hx Obtained From: Patient Arrived By: Ambulance Sudden in Onset?: Yes Onset Occurred: Just prior to arrival Symptom Duration: Since onset Severity: Current: No pain currently Recent Healthcare: Recent doctor visit, Recent hospitalization Similar Sx Previous: Yes Past Medical History Past Medical History Alcohol abuse with prior withdrawal seizures Depression with prior suicide attempt Substance-induced mood disorder, alcohol. Tailbone fracture chronic back pain and scoliosis Reports: Asthma Past Surgical History Hernia repair R ovarian surg Right ring trigger release Reports: Tubal ligation Smoking History Current Every Day Smoker Social History Ex-lamonte Mayer Alcohol Use: >5 per day Drug Use: Denies drug use Other Social History: Local resident Ambulatory Status Independent Review of Systems Unable to Obtain ROS Intoxicated Physical Exam CWA SCORE: 28 Breathalyzer: 245 Vital Signs Vital Signs Date Time Temp Pulse Resp B/P Pulse Ox O2 Delivery O2 Flow Rate FiO2 04/08/16 14:41 14 122/85 97 Room Air 04/08/16 11:58 84 13 99/46 97 Room Air 04/08/16 09:58 37.1 87 13 110/94 95 Room Air Initial VS: Reviewed Head / Eyes: Atraumatic, Normocephalic, PERRL ENT: Mucous membranes moist, Conjunctiva normal, No scleral icterus Neck: Supple, Non-tender, Full range of motion Abdomen / GI: Soft, Non-tender, No guarding, No rebound, No distention Back: No CVA tenderness Extremities: Vascular intact, Neuro intact, No swelling, No tenderness Skin: Warm, Dry, No cyanosis Appearance / Presentation: Positive: Intoxicated Respiratory / Chest: No rales, No rhonchi Wheezing / Retractions: Positive: Wheezing mild (scattered ) Heart Rate / Rhythm: Positive: Tachycardia Interpretation & Diagnostics Lab Results Interpretation Result Diagram: 04/08/16 1125 04/08/16 1125 Test 04/08/16 10:20 04/08/16 11:25 04/08/16 12:30 Prothrombin Time 10.1sec (8.1-12.5) Prothromb Time International Ratio 0.95ratio Activated Partial Thromboplast Time 24.1sec (22.8-33.0) White Blood Count 5.5th/mm3 (3.8-10.1) Red Blood Count 4.64mil/mm3 (3.90-5.20) Hemoglobin 15.0g/dL (12.0-15.6) Hematocrit 44.0% (35.0-46.0) Mean Corpuscular Volume 94.8fL (81-100) Mean Corpuscular Hemoglobin 32.3pg (27.0-35.0) Mean Corpuscular Hemoglobin Concent 34.1% (32.0-37.0) Red Cell Distribution Width 14.2% (12.3-15.4) Platelet Count 268bil/L (150-400) Neutrophils (%) (Auto) 54.1% (40-74) Lymphocytes (%) (Auto) 32.9% (14-46) Monocytes (%) (Auto) 10.5% (4-12) Eosinophils (%) (Auto) 1.1% (0-5) Basophils (%) (Auto) 0.5% (0-3) Sodium Level 148mEq/L (134-144) Potassium Level 4.3mEq/L (3.5-5.2) Chloride Level 107mEq/L (97-108) Carbon Dioxide Level 28mmol/L (18-29) Blood Urea Nitrogen 5mg/dL (6-24) Creatinine 0.50mg/dL (0.57-1.00) Estimat Glomerular Filtration Rate 183mL/min (>59) Glucose Level 112mg/dL (60-99) Calcium Level 8.4mg/dL (8.5-10.1) Phosphorus Level 4.2mg/dL (2.5-4.9) Magnesium Level 2.3mg/dL (1.6-2.6) Total Bilirubin 0.2mg/dL (0.0-1.2) Aspartate Amino Transf (AST/SGOT) 50U/L (0-50) Alanine Aminotransferase (ALT/SGPT) 38U/L (0-32) Alkaline Phosphatase 52U/L (25-150) Total Protein 7.1g/dL (6.4-8.4) Albumin 3.7g/dL (3.4-5.0) Lipase 23U/L (13-60) Hold Daniel Top Tube Received (Received) Alcohol, Quantitative 271mg/dL (0-10) Hold Urine Received (Received) Re-Eval/Medical Decision Med Decision/Clinical Course Presents with acute delirium tremens with alcohol level stool in the 240 range and CIWA score in the 28 range. I be started IV Valium given loaded with phenobarbital. Will be admitted to CCU for medical detoxification of acute alcohol addiction Time of Eval: 11:05 Patient Status: Condition unchanged Re-Evaluation/Progress Note: Pt reevaluated. She refuses breathalyzer. Consultation : Referral / Consult Name: Jerry Cohen MD Call Returned at: 12:03 Corporate Executive: Agrees with eval, Agrees with plan, Accepts admit Note: Case discussed. Dr. Cohen agrees with plan and will see the patient. Counseled Regarding: Diagnosis, Lab results, Need for admission Discharge & Departure Primary Impression: Delirium tremens Additional Impression: Alcohol intoxication Complication of substance-induced condition: with unspecified complication Qualified Code: F10.129 - Alcohol abuse with intoxication, unspecified Disposition: ADMITTED TO HOSPITAL Discharge Condition All VS Reviewed: Yes Condition: Stable Referrals: Carmel Medellin (PCP) Scribe Attestation Portion of this note were transcribed by Дмитрий Luther. I, Dr. Lara, personally performed the history, physical exam, and medical decision-making: I reviewed and confirmed the accuracy for the information in the transcribed note. Signed by: andrea London, 04/08/16 1501 copies to: Carmel Medellin Shawna L MD Apr 08, 2016 10:25 ДМИТРИЙ LUTHER Apr 08, 2016 10:50
[2016-04-08] MEDS ORDERED: LORazepam 2 mg Tablet PO ONE (11:25)
[2016-04-08 11:37] LABS: BASOPHILS % (AUTO) 0.5 % (0-3); EOSINOPHILS % (AUTO) 1.1 % (0-5); MONOCYTES % (AUTO) 10.5 % (4-12); Mean Corpuscular Hemoglobin 32.3 pg (27.0-35.0); Mean Corpuscular Volume 94.8 fL (81-100); NEUTROPHILS % (AUTO) 54.1 % (40-74); Platelet Count 268 bil/L (150-400)
[2016-04-08 11:53] LABS: INR 0.95 ratio
[2016-04-08 11:58] VITALS: BP 99/46; PULSE 84; RESP 13; O2SAT 97
[2016-04-08 11:58] LABS: Magnesium 2.3 mg/dL (1.6-2.6); Phosphorus 4.2 mg/dL (2.5-4.9)
[2016-04-08] MEDS ORDERED: Thiamine Inj 100 MG, Folic Acid Inj 1 MG, Magnesium Sulfate 50% Inj 2 GM, Multivitamins... IV ONE ×5 (12:10)
[2016-04-08] MEDS ORDERED: Polyethylene Glycol (PEG) 17 Gm Powder PO PRN (14:05)
[2016-04-08] MEDS ORDERED: Alum-Mag Hydrox-Simeth 30 mL Suspension PO PRN (14:05)
[2016-04-08 14:41] VITALS: BP 122/85; RESP 14; O2SAT 97
[2016-04-08 15:30] VITALS: BP 132/90; PULSE 74; RESP 21; O2SAT 97
[2016-04-08] MEDS: 0.9% Sodium Chloride 1,000 ML IV SCH (15:40)
[2016-04-08] MEDS: Heparin 5,000 Unit/mL Inj SUBQ SCH (16:47)
--- NOTE | 2016-04-08 16:56 | NUR ---
P: Alteration in neuro status due to ETOH W/D I: Received pt from ED. She was sleepy,but soon CIWA 30. Valium 10mg IV given with good relief. Pt awakens easily and is taking po on her own. Up to BSC to void with one assist. Pt had already been incontinent. 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 NS started at 100cc/hr. O2 2L/NC on due to sedating pt. After Valium 10mg given CIWA 8. MRSA swab sent. NSR/ ST. BP was up when she first arrived but is 122/80 after Valium given. Turns her self. E: Stable S: Bed Alarm on for pt safety. Call light where pt can reach it. Frequent rounding.
[2016-04-08] MEDS: Thiamine Inj 500 MG in Dextrose 5% 50 ML IV SCH ×2 (17:02→22:53)
[2016-04-08 17:08] VITALS: BP 122/80; PULSE 84; RESP 22; O2SAT 97
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
[2016-04-08 20:30] VITALS: BP 148/95; PULSE 78; RESP 24; O2SAT 96
[2016-04-09] VITALS (8 sets, daily range): BP systolic 109–152; BP diastolic 68–96; PULSE 74–105; RESP 20–24; O2SAT 93–98
[2016-04-09] MEDS: Heparin 5,000 Unit/mL Inj SUBQ SCH ×3 (00:18→16:10)
[2016-04-09] MEDS: 0.9% Sodium Chloride 1,000 ML IV SCH ×3 (02:00→20:03)
[2016-04-09 03:43] LABS: BASOPHILS % (AUTO) 0.4 % (0-3); EOSINOPHILS % (AUTO) 1.3 % (0-5); MONOCYTES % (AUTO) 8.2 % (4-12); Mean Corpuscular Hemoglobin 31.8 pg (27.0-35.0); Mean Corpuscular Volume 96.7 fL (81-100); NEUTROPHILS % (AUTO) 58.5 % (40-74); Platelet Count 200 bil/L (150-400)
[2016-04-09] MEDS: Thiamine Inj 500 MG in Dextrose 5% 50 ML IV SCH ×3 (09:02→20:40)
[2016-04-09] MEDS ORDERED: PHENobarbital 32.4 mg Tablet PO ONE (14:40)
[2016-04-09] MEDS: oxyCODONE 1 mg/mL 5 mL Liquid PO PRN ×2 (15:13→21:00)
--- NOTE | 2016-04-09 16:50 | NUR ---
P: Agitation I: Valium IV given to the pt about every half hour. Pt confused at times and trying to get out of bed. Pt taking monitoring off. Discussed with MD about adding some po meds. Po meds given. Pt still not staying in bed and pt is a 1:1 observation pt due to fall risk. Pt restrained for pt safety. NS decreased to 50cc/hr. Pt taking po fluids and diet well. Voiding via bedpan output QS. Ate 75% of both meals without difficulty. Pt had a large soft brown BM and guaiac sent. NSR. Sats stable on 2L/NC. Skin intact. E: Stable S: Pt getting more agitated. Restraints applied for pt safety. Frequent rounding.
--- NOTE | 2016-04-09 17:43 | PCM.PNMED ---
Subjective Date of Service Apr 09, 2016 Subjective Shira Goodwin is a 55 year old homeless female w/ a hx of EtOH abuse, bronchitis, and asthma who presents to the ED via EMS due to severe EtOH intoxication. No overnight events to report. CIWA score 21 points this morning at 08:00 an 23 points at 09:00. She reports that she feels "twitchy" this morning. She also has right upper quadrant and suprapubic pain. Patient is eating and drinking fluids well. Exam Vital Signs Vital Sign - Last Date Time Temp Pulse Resp B/P Pulse Ox O2 Delivery O2 Flow Rate FiO2 04/09/16 08:30 36.8 78 23 109/90 98 Nasal Cannula 2.00 Intake and Output 04/08/16 04/08/16 04/09/16 Cumulative From/Thru 15:00 23:00 07:00 04/08/16 09:58 - 04/09/16 06:15 Intake Total 2000 ml 457 ml 1392 ml 3849 ml Output Total 500 ml 800 ml 1300 ml Balance 2000 ml -43 ml 592 ml 2549 ml Intake Oral 240 ml 240 ml IV Total 2000 ml 217 ml 1392 ml 3609 ml Output Urine Total 500 ml 800 ml 1300 ml # Voids 1 5 6 Exam General: Drowsy. Poor historian but answers questions. Head: Normocephalic, atraumatic. External ears normal. Eyes: PERRLA, EOMI. Anicteric sclerae. Mouth: Mouth Normal, Mucous Membranes Dry Neck: Neck supple with full range of motion. Poor skin turgor Chest & Lungs: Clear to auscultation bilaterally with no crackles, wheezes, or rhonchi. Cardiovascular: Regular Rate/Rhythm, Normal S1, Normal S2, No Murmurs/Rubs/ Gallops Abdomen: RUQ tenderness to palpation, Non-distended, No masses, Normoactive bowel tones, Soft Musculoskeletal: Normal Range of Motion Extremities: No cyanosis/clubbing/edema bilaterally Neurological: Intoxicated. Appears neurologically intact. IVs and Medications Medications Reviewed: Medications were reviewed in detail Lab and Diagnostics Result Diagram: 04/09/1631404/09/16314 Assessment & Plan Shira Goodwin is a 55 year old homeless female w/ a hx of EtOH abuse, bronchitis, and asthma who presents to the ED via EMS due to severe EtOH intoxication. Admitted for acute alcohol intoxication and withdrawal. 1. Acute alcohol withdrawal with delirium tremens. Present on admission. Active. - Pt presentED altered and hallucinating. She has a history of alcohol withdrawal seizures. Pt given IV Valium and phenobarbital in the ED. - CIWA protocol started - Thiamine 500 mg TID for 3 days, then then 250 mg IV for 5 days - Continue normal saline at 100 ml/hr - Phenobarbital 60 mg QID today, TID tomorrow, BID on day 3, and 30 mg BID on day 4. 2. Possible upper GI bleed. Acute. Present on admission. - Pt presents with RUQ abdominal pain and possible history of black stool, although her history is questionable. Given her history of alcohol abuse, this certainly is a possibility. She does not appear to have severe liver disease given her normal albumin and INR, although she does have thrombocytopenia. AST is normal, ALT is slightly elevated at 38. - Stool guaiac ordered - Monitor for dark stools - Monitor H&H - Continue to monitor LFTs. 3. Hypernatremia, acute. Present on admission. Improved. - Secondary to dehydration. Improved today at 142. - Normal saline at 100 ml/hour - Continue to monitor 4. History of asthma - Hold home albuterol inhaler. 5. Chronic back pain and scoliosis - Continue home oxycodone 6. Restless leg syndrome - Continue mirapex 7. Depression and anxiety - Hold home Ativan. 8. Other chronic conditions. - Alcohol abuse with prior withdrawal seizures - Depression with prior suicide attempt - Substance-induced mood disorder, alcohol. - Tailbone fracture VTE Prophylaxis: Sub-Q Heparin (Unfractionated) Resuscitation Status: CPR: Attempt Resuscitation Attending Statement The patient was seen and examined together with Dr. Betts on 04/09/2016 and I agree with the history, exam and plan as outlined in the note above. . Krupa Betts DO Apr 09, 2016 11:06 Jerry Cohen MD Apr 10, 2016 09:02
[2016-04-09] MEDS ORDERED: PHENobarbital 32.4 mg Tablet PO SCH (19:30)
[2016-04-10] MEDS: 0.9% Sodium Chloride 1,000 ML IV SCH ×2 (01:02→14:14)
[2016-04-10] MEDS: Heparin 5,000 Unit/mL Inj SUBQ SCH ×3 (01:03→16:30)
[2016-04-10] MEDS: oxyCODONE 1 mg/mL 5 mL Liquid PO PRN ×3 (01:03→11:58)
[2016-04-10 04:00] VITALS: BP 112/72; PULSE 83; RESP 16; O2SAT 98
[2016-04-10 04:04] VITALS: PULSE 80
[2016-04-10 06:11] LABS: BASOPHILS % (AUTO) 0.2 % (0-3); EOSINOPHILS % (AUTO) 2.8 % (0-5); MONOCYTES % (AUTO) 6.2 % (4-12); Mean Corpuscular Hemoglobin 31.8 pg (27.0-35.0); Mean Corpuscular Volume 96.4 fL (81-100); NEUTROPHILS % (AUTO) 61.7 % (40-74); Platelet Count 202 bil/L (150-400)
--- NOTE | 2016-04-10 06:25 | NUR ---
Retention/CIWA Pt oriented to self,place and time but forgetful at times. Pt needs reorientation at times with understanding noted. CIWA score 24-10. Valium given prn with some effectiveness noted. Oxycodone given for headache. Pt c/o headache 10/03 even after pain meds. Pt noted to be sleeping comfortably after dose. Pt requesting to use bedpan with little urine output noted. Bladder scan amount noted >999. Md made aware. Straight catheter done once. Noted UO 1050 cc from straight catheter. UA sent to lab as ordered.
[2016-04-10 06:31] LABS: APPEARANCE,URINE CLEAR (CLEAR,HAZY); COLOR,URINE YELLOW (YELLOW); OCCULT BLOOD,URINE NEGATIVE (NEGATIVE); UROBILINOGEN,URINE NORMAL (NORMAL)
[2016-04-10 08:15] VITALS: BP 103/62; PULSE 80; PULSE 83; RESP 17; O2SAT 95
[2016-04-10] MEDS ORDERED: PHENobarbital 32.4 mg Tablet PO SCH (08:30)
[2016-04-10] MEDS: PHENobarbital 32.4 mg Tablet PO SCH ×3 (08:31→21:27)
[2016-04-10] MEDS: Thiamine Inj 500 MG in Dextrose 5% 50 ML IV SCH ×3 (08:31→21:27)
[2016-04-10 11:51] VITALS: BP 116/67; PULSE 84; RESP 19; O2SAT 95
[2016-04-10] MEDS: Dexmedetomidine 400 mCg/100 mL 400 MCG in IV Premix 1 EACH IV SCH ×2 (12:16→14:13)
[2016-04-10 16:12] VITALS: BP 103/70; PULSE 80; RESP 22; O2SAT 94
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
--- NOTE | 2016-04-10 17:55 | NUR ---
CIWA/wanting to leave AMA Patient remained forgetful and often upset because she could not remember what kind care/medications she received. Patient was medicated with Valium 10mg IV for CIWA >10 three times at the earlier part of the shift with varied results. In addition patient was given her schedule doses of pentobarbital PO and PRN dose of oxycodone for headache. Later during the shift patient refuse IV and PO medications. Patient was not willing to be rezoned with and appeared to be acting in a child like manner. Patient refused to use a bedpan and insisted on getting up to a bedside commode. She required support during transfer because she was slumbering and fumbling over her own feet. Progressively patient started to be more agitated and demanding that she be released AMA. Patient was seen by attending resident and attending MD today. After talking to both of them thy clearly advised the patient to remain in the hospital for alcohol detoxification until the patient is able to make clear decisions and becomes more stable and able to move without being at risk for falling. Consulted with MD and the patient was started on Precedex drip earlier today. Initially it did not appear to assist the patient with her withdrawal symptoms and she appeared to be more insistent on leaving AMA- consulted with MD and IV fluids and IV/PO meds including Precedex drip were stopped to allow clearing meds out off patients system before she leaves. Patient had been homeless and had no place to go. She insisted that her sister Elle be called but was not able to provide valid phone number- unable reach patients sister with any of the phone numbers given by the patient. Consulted with Nursing Unit Manager and MD again regarding patient discharging AMA- If discharge AMA patient would be discharge to community without any support. On returning to the room to give this information to the patient and again attempt to reason with her found patient asleep and calm- Precedex drip was resumed at higher dose after consulting with MD -continue assessment.
--- NOTE | 2016-04-10 18:07 | PCM.PNMED ---
Subjective Date of Service Apr 10, 2016 Subjective Shira Goodwin is a 55 year old homeless female w/ a hx of EtOH abuse, bronchitis, and asthma who presents to the ED via EMS due to severe EtOH intoxication. CIWA score 13 points and 9 points this morning. She continues to have abdominal pain that is generalized today. Patient is eating and drinking fluids well. She is very restless. Exam Vital Signs Vital Sign - Last Date Time Temp Pulse Resp B/P Pulse Ox O2 Delivery O2 Flow Rate FiO2 04/10/16 16:12 80 04/10/16 16:12 36.8 22 103/70 94 Room Air 04/10/16 08:15 3.00 Intake and Output 04/09/16 04/09/16 04/10/16 Cumulative From/Thru 15:00 23:00 07:00 04/08/16 09:58 - 04/10/16 06:22 Intake Total 2174 ml 1723 ml 7746 ml Output Total 3050 ml 1950 ml 6300 ml Balance -876 ml -227 ml 1446 ml Intake Oral 1210 ml 820 ml 2270 ml IV Total 964 ml 903 ml 5476 ml Output Urine Total 3050 ml 1950 ml 6300 ml # Voids 3 9 # Bowel Movements 0 0 Exam General: Drowsy and restless. Poor historian but answers questions. Head: Normocephalic, atraumatic. External ears normal. Eyes: PERRLA, EOMI. Anicteric sclerae. Mouth: Mouth Normal, Mucous Membranes Dry Neck: Neck supple with full range of motion. Poor skin turgor Chest & Lungs: Clear to auscultation bilaterally with no crackles, wheezes, or rhonchi. Cardiovascular: Regular Rate/Rhythm, Normal S1, Normal S2, No Murmurs/Rubs/ Gallops Abdomen: Diffuse tenderness to palpation, Non-distended, No masses, Normoactive bowel tones, Soft Musculoskeletal: Normal Range of Motion Extremities: No cyanosis/clubbing/edema bilaterally Neurological: Restless and agitated. Appears neurologically intact. IVs and Medications Medications Reviewed: Medications were reviewed in detail Lab and Diagnostics Result Diagram: 04/10/16 0505 04/10/16 0501 Assessment & Plan Shira Goodwin is a 55 year old homeless female w/ a hx of EtOH abuse, bronchitis, and asthma who presents to the ED via EMS due to severe EtOH intoxication. Admitted for acute alcohol intoxication and withdrawal (*per HPI note). 1. Acute alcohol withdrawal with delirium tremens. Present on admission. Active. - Pt presented altered and hallucinating. She has a history of alcohol withdrawal seizures. Pt given IV Valium and phenobarbital in the ED. - CIWA protocol started - Thiamine 500 mg TID for 3 days, then then 250 mg IV for 5 days - Continue normal saline at 100 ml/hr - Phenobarbital 60 mg QID yesterday, TID today, BID on day 3, and 30 mg BID on day 4. 2. Possible upper GI bleed. Acute. Present on admission. - Pt presents with RUQ abdominal pain and possible history of black stool, although her history is questionable. Given her history of alcohol abuse, this certainly is a possibility. She does not appear to have severe liver disease given her normal albumin and INR and thrombocytopenia. AST is normal, ALT is normal today -Maddrey discriminant score is -9 - Stool guaiac negative - Monitor for dark stools - Monitor H&H - Continue to monitor LFTs. 3. Hypernatremia, acute. Present on admission. Improved. - Secondary to dehydration. Continues to be improved today. - Normal saline at 100 ml/hour - Continue to monitor 4. History of asthma - Hold home albuterol inhaler for now. 5. Chronic back pain and scoliosis - Continue home oxycodone 6. Restless leg syndrome - Continue mirapex 7. Depression and anxiety - Hold home Ativan. 8. Other chronic conditions. - Alcohol abuse with prior withdrawal seizures - Depression with prior suicide attempt - Substance-induced mood disorder, alcohol. - Tailbone fracture Pain Evaluation: Adequate Pain Control VTE Prophylaxis: Sub-Q Heparin (Unfractionated) Resuscitation Status: CPR: Attempt Resuscitation Time spent 40 minutes Attending Statement Patient was seen and examined with house staff. Agree with all attached documentation. Krupa Betts DO Apr 10, 2016 16:30 Obey Live MD Apr 11, 2016 15:06
[2016-04-10 20:30] VITALS: BP_SYST 119; BP_SYST 130; BP_DIAS 62; BP_DIAS 80; PULSE 66; PULSE 70; PULSE 72; RESP 20; RESP 22; O2SAT 96; O2SAT 98
[2016-04-11 00:30] VITALS: BP 119/80; PULSE 63; RESP 19; O2SAT 95
[2016-04-11] MEDS: Heparin 5,000 Unit/mL Inj SUBQ SCH ×2 (01:18→08:31)
[2016-04-11] MEDS: 0.9% Sodium Chloride 1,000 ML IV SCH ×2 (01:34→12:03)
[2016-04-11 04:30] VITALS: BP 124/81; PULSE 64; RESP 20; O2SAT 98
[2016-04-11 04:34] LABS: BASOPHILS % (AUTO) 0.4 % (0-3); EOSINOPHILS % (AUTO) 3.1 % (0-5); MONOCYTES % (AUTO) 5.1 % (4-12); Mean Corpuscular Hemoglobin 32.2 pg (27.0-35.0); Mean Corpuscular Volume 95.5 fL (81-100); NEUTROPHILS % (AUTO) 59.7 % (40-74); Platelet Count 186 bil/L (150-400)
--- NOTE | 2016-04-11 06:52 | NUR ---
Pt sleeping most of shift, precedex on for comfort and to limit ETOH w/d. Able to follow commands but is lethargic and impulsive at times, especially when needing to void. A&O X [address] VSS afebrile and good urine output. Voiced concerns to leave AMA but then goes back to sleep. Wants to know when she can leave. Incontinent at times but is able to make her needs known most of the time. Will continue to support and monitor.
[2016-04-11 08:12] VITALS: BP 89/68; PULSE 62; RESP 17; O2SAT 94
[2016-04-11] MEDS ORDERED: PHENobarbital 32.4 mg Tablet PO SCH (08:30)
[2016-04-11] MEDS: Thiamine Inj 500 MG in Dextrose 5% 50 ML IV SCH (08:32)
[2016-04-11] MEDS: Dexmedetomidine 400 mCg/100 mL 400 MCG in IV Premix 1 EACH IV SCH (08:32)
[2016-04-11 11:55] VITALS: BP 103/63; PULSE 73; RESP 24; O2SAT 95
--- NOTE | 2016-04-11 12:24 | NUR ---
Agitation/wanting to leave AMA Patient was sleeping on/off this morning with Precedex 0.6-0.65mcg/kg/h. occasionally she was agitated but able to calm down with reassurance and talking. At noon time patient started to climb out of bed. Patient was agitated and was using inappropriate language addressing staff members. At the time patient was insisting on being let go/discharged AMA. She pulled monitoring leads off of herself t the time. Consulted with MD discontinue Precedex drip and other PO/IV medications addressing alcohol withdraw symptoms to allow the patient to wake up and be able to ambulate. It was difficult to explain to the patient the reason for her need to remain in the hospital bed for the time as a safety precaution until she is steady/stable - Patient appeared to be paranoid in her behavior and was taking the explanation as an attempt to detain her against her will. Eventually patient calm down and dosed off-Bed exit alarm on, continue close monitoring.
--- NOTE | 2016-04-11 13:57 | NUR ---
Leaving AMA Patient pulled some of her monitoring leads prior to discharge/leaving. Patient finished her lunch and rested in her bed until 1310. At the time patient ambulated in hallways once around PCC/CCU unit accompanied by unit CAN. Patient was stable on her feet and denied having any dizziness during and after the activity. patient was oriented to place, persona and date. Left wrist-patients only IV access - was removed intact. Patient dressed and willfully signed AMA form after reading it. MD was made aware about patients decision. Patient collected her belongings from 2013 closet which included her cloths, small brown purse, three small bottles labeled as alcohol and two packs of cigarettes. Patient left her hospital room at 1345. Patient was accompanied by staff to the main Hospital lobby/entrance for safety.
--- NOTE | 2016-04-11 22:23 | PCM.DIMED ---
Krupa Betts DO 04/11/16 2222: Discharge Instructions Date of Service Apr 11, 2016 Dates of Hospitalization Apr 08, 2016 at 14:46 Discharge Diagnosis Discharge Diagnosis 1. Left against medical advice. 2. Acute alcohol withdrawal with delirium tremens. 3. Possible upper GI bleed. 4. Hypernatremia 5. History of asthma 6. Chronic back pain and scoliosis 7. Restless leg syndrome 8. Depression and anxiety 9. Other chronic conditions. - Alcohol abuse with prior withdrawal seizures - Depression with prior suicide attempt - Substance-induced mood disorder, alcohol. - Tailbone fracture Patient Instructions Patient left against medical advice. It was recommended that patient continue to stay in order to safely withdraw from alcohol and advised of risks of leaving including but not limited to potential seizures and falls, which could lead to significant trauma, such as head trauma that could lead to . Obey Live MD 04/12/16 0956: Discharge Instructions Attending's Statement Patient seen and examined with housestaff, agree with all attached documentation. Krupa Betts DO Apr 11, 2016 22:22 Obey Live MD Apr 12, 2016 09:56
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
[2016-04-12] MEDS ORDERED: PHENobarbital 32.4 mg Tablet PO SCH (08:30)
== END 2016-04-11 14:00 | disposition left against medical advice (07) | DRG 894 ==
LOC: SED 09:55 → PCC 14:46 → CCU 15:04
PROVIDERS: ADMIT Internal Medicine; ATTEND Internal Medicine
DX: F10.231 Alcohol dependence with withdrawal delirium (principal); E87.0 Hyperosmolality and hypernatremia; M41.9 Scoliosis, unspecified; K92.2 Gastrointestinal hemorrhage, unspecified; F10.229 Alcohol dependence with intoxication, unspecified; F17.210 Nicotine dependence, cigarettes, uncomplicated; Y90.8 Blood alcohol level of 240 mg/100 ml or more; Z59.0 Homelessness; M54.9 Dorsalgia, unspecified; G25.81 Restless legs syndrome; F32.9 Major depressive disorder, single episode, unspecified; F41.9 Anxiety disorder, unspecified; Z91.5 Personal history of self-harm

== ENCOUNTER 2016-04-15 13:20 | Emergency (ER) | payer OTHER ==
[2016-04-15 13:49] VITALS: BP 102/63; PULSE 89; RESP 14; O2SAT 92
[2016-04-15] MEDS ORDERED: 0.9% Sodium Chloride 1,000 ML IV ONE (14:29)
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
[2016-04-15 15:17] LABS: BASOPHILS % (AUTO) 0.6 % (0-3); EOSINOPHILS % (AUTO) 1.3 % (0-5); MONOCYTES % (AUTO) 6.6 % (4-12); Mean Corpuscular Hemoglobin 32.9 pg (27.0-35.0); Mean Corpuscular Volume 96.9 fL (81-100); NEUTROPHILS % (AUTO) 55.3 % (40-74); Platelet Count 186 bil/L (150-400)
--- NOTE | 2016-04-15 15:29 | DRSVH ---
PROCEDURE: CT BRAIN WITHOUT CONTRAST ([id number]) INDICATIONS: trauma, ams TECHNIQUE: Noncontrast 4.5 mm thick angled axial sections acquired from the foramen magnum to the vertex, with c oronal reformats. COMPARISON: [facility], CT, CT BRAIN WO CON, 03/21/2016, 8:11. FINDINGS: Image quality: There is motion artifact and suboptimal positioning limiting evaluation. CSF spaces: Basal cisterns are patent. There is prominence of the bifrontal extra-axial spaces with CSF density likely reflecting cerebral volume loss. Brain: No definite intracranial hemorrhage, mass, or mass effect. Thompson-white matter interface is gr ossly preserved. Skull and face: Calvarium and visualized facial bones are grossly intact. Sinuses: Visualized sinuses and mastoids are grossly clear. IMPRESSION: 1. Limited study demonstrates no definite acute intracranial abnormality. 2. Prominence of the bifrontal extra-axial spaces again noted compatible with cerebral volume loss. Dictated by: Lev Grier M.D. on 04/15/2016 at 15:24 Approved by: Lev Grier M.D. on 04/15/2016 at 15:27
[2016-04-15 17:03] VITALS: BP 119/70; PULSE 100; RESP 18; O2SAT 94
[2016-04-15 17:44] VITALS: BP 119/70; PULSE 100; RESP 18; O2SAT 94
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
== END 2016-04-15 17:46 | disposition home or self-care (01) ==
LOC: SED 13:20
DX: S00.83XA Contusion of other part of head, initial encounter (principal); W22.09XA Striking against other stationary object, initial encounter; Y93.02 Activity, running; Y92.89 Other specified places as the place of occurrence of the external cause; Y99.8 Other external cause status; F10.120 Alcohol abuse with intoxication, uncomplicated; J45.909 Unspecified asthma, uncomplicated; F17.200 Nicotine dependence, unspecified, uncomplicated; Z88.1 Allergy status to other antibiotic agents
CPT/HCPCS: 36415; 70450; 80053; 85025; 90791; 96360; 99285; G0480

== ENCOUNTER 2016-04-22 18:09 | Inpatient (IN) | payer OTHER ==
[~2016-04-22] VITALS: Ht 162.6 cm; Wt 49.2 kg
[2016-04-22 18:25] VITALS: BP 113/81; PULSE 104; RESP 18; O2SAT 92
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
[2016-04-22 21:22] LABS: Mean Corpuscular Hemoglobin 32.5 pg (27.0-35.0); Mean Corpuscular Volume 95.1 fL (81-100)
[2016-04-22] MEDS ORDERED: Alum-Mag Hydrox-Simeth 30 mL Suspension PO PRN (23:20)
[2016-04-22] MEDS ORDERED: Polyethylene Glycol (PEG) 17 Gm Powder PO PRN (23:20)
[2016-04-22] MEDS ORDERED: Ondansetron 2 mg/mL 2 mL Inj IVPUSH PRN (23:20)
[2016-04-22] MEDS ORDERED: Thiamine Inj 100 MG, Folic Acid Inj 1 MG, Magnesium Sulfate 50% Inj 2 GM, Multivitamins... IV ONE ×5 (23:20)
[2016-04-23] VITALS (11 sets, daily range): BP systolic 112–148; BP diastolic 71–100; PULSE 76–108; RESP 15–22; O2SAT 93–98
--- NOTE | 2016-04-23 01:42 | NUR ---
Admission Pt admitted to 2025. She refuses most of her skin assessment but I was able to see knees/feet/arms/and partial perineum. See nurse assessment Pt states, "I don't feel good". When asked about pain she said her "tummy hurt". VS stable. CIWA ordered. Seizure pads on bed rails. Brief in place due to pt's incontinency. Care ongoing.
[2016-04-23] MEDS: 0.9% Sodium Chloride 1,000 ML IV SCH ×4 (01:59→23:33)
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
--- NOTE | 2016-04-23 03:00 | NUR ---
Agitation Pt frequently trying to get up OOB. Requested sitter for fall safety. Supervisior aware. Sitter avialable at 0400. [place] alarm in place.
[2016-04-23] MEDS: Heparin 5,000 Unit/mL Inj SUBQ SCH ×4 (04:01→23:33)
--- NOTE | 2016-04-23 04:36 | NUR ---
Med Rec NOT complete Pt not awake enough to verify meds or tell RN where she last had medications filled.
[2016-04-23] MEDS: Multivit-Miner-Folic Acid-Iron Tablet PO SCH (08:42)
--- NOTE | 2016-04-23 08:44 | DRSVH ---
PROCEDURE: CT BRAIN WITHOUT CONTRAST ([id number]) INDICATIONS: head injury, intoxication TECHNIQUE: Noncontrast 4.5 mm thick angled axial sections acquired from the foramen magnum to the vertex, with c oronal reformats. COMPARISON: [facility], CT, CT BRAIN WO CON, 04/15/2016, 15:07. FINDINGS: Image quality: Excellent. CSF spaces: Basal cisterns are patent. No extra-axial fluid collections. The ventricles are symmet sameer in size and shape. Brain: No intracranial bleeds or masses. There is cerebral volume loss for age, with resultant vent ricular and sulcal prominence. There are periventricular and deep white matter chronic small vessel ischemic changes. There is intracranial internal carotid artery atherosclerosis. Skull and face: Calvarium and visualized facial bones appear intact, without suspicious lesions. Sinuses: Minimal opacification of the inferior left mastoid air cells IMPRESSION: No acute intracranial process. Chronic age related white matter changes as above Dictated by: Herman He M.D. on 04/23/2016 at 8:41 Approved by: Herman He M.D. on 04/23/2016 at 8:42
--- NOTE | 2016-04-23 11:47 | NUR ---
Loose stools Pt is having multiple loose stools this am and is incontinent. Mara applied to buttocks for protection due to them being reddened this am and now having loose stools. Will ask MD for something to help with the liquid stools.
--- NOTE | 2016-04-23 13:59 | PCM.PNMED ---
Subjective Date of Service Apr 23, 2016 Subjective Shira Goodwin is a 55 year old female with Depression, suicidal ideation, and Alcohol abuse with prior withdrawal seizures presents to [facility] emergency department requesting assistance with alcohol detox. CIWA score this morning ranged from 7-16. She has tremors and is no longer hallucinating. She knows what year it is and her age. She does not have headache, abdominal pain, nausea, or vomiting. She has diarrhea. Exam Vital Signs Vital Sign - Last Date Time Temp Pulse Resp B/P Pulse Ox O2 Delivery O2 Flow Rate FiO2 04/23/16 11:56 36.8 76 22 148/86 98 Nasal Cannula 2.00 Intake and Output 04/22/16 04/22/16 04/23/16 Cumulative From/Thru 15:00 23:00 07:00 04/23/16 01:38 - 04/23/16 06:01 Intake Total 1166 ml 1166 ml Balance 1166 ml 1166 ml Intake Oral 0 ml 0 ml IV Total 1166 ml 1166 ml # Voids 2 2 # Bowel Movements 0 0 Exam General: Awake and drowsy, Oriented to person and to time, Disoriented to place , Cooperative Eyes: PERRLA, Scleral Anicteric Mouth: Mouth Normal, Mucous Membranes Moist/[employer] Neck: Supple, no Thyromegaly, trachea central. Chest & Lungs: Clear to auscultation & percussion, No adventitious breath sounds, no crackles, no wheeze Cardiovascular: Normal S1, Normal S2, No Murmurs/Rubs/Gallops, Regular Rate/ Rhythm, Murmur, Other (No JVD, no peripheral edema) Pulses: Radial (present and equal), Dorsalis Pedi (present and equal) Abdomen: Soft, Non-tender, Non-distended, Normoactive bowel tones. Musculoskeletal: Unremarkable. Normal range of motion, no swollen or erythematous joints Extremities: No edema, no cyanosis, no clubbing. Skin: No rashes. Warm and dry, no erythematous areas Neurological: Tremor bilaterally. Grossly neurologically intact, has generalized weakness, Normal Speech, Sensation Intact Lymphatic: Lymph nodes Cervical and Axillary not palpable. IVs and Medications Medications Reviewed: Medications were reviewed in detail Lab and Diagnostics Result Diagram: 04/22/16204904/22/162049 Assessment & Plan Shira Goodwin is a 55 year old homeless female Alcohol abuse, bronchitis, and asthma who presents to the ED via EMS due to severe EtOH intoxication. Admitted for acute alcohol intoxication and withdrawal. She is requesting assistance with detox placement 1. Acute alcohol withdrawal with delirium tremens. Present on admission. History of alcohol withdrawal seizures. Multiple evaluations for Alcohol intoxication and withdrawal episodes. - Thiamine, Folate supplemented - Case Management referral - CIWA protocol started and continued - Magnesium and potassium within normal limits, diet increased to general 2. Hypernatremia, acute. Present on admission.Improved. - Secondary to dehydration. - Continue Normal saline at 100 ml/hr - Monitor with morning labs 3. Diarrhea. Present on admission. - Clostridium difficile PCR ordered - Pepto-Bismol as needed 4. Asthma, chronic. No exacerbation noted - Hold home albuterol inhaler. 5. Chronic back pain and scoliosis - Hold home oxycodone for now as patient does not report pain 6. Restless leg syndrome/Depression and anxiety - Hold home Ativan while on Valium protocol - Continue Mirapex 7. Nicotine Dependence Cessation discussed and encouraged - Nicotine patch when requested 8. Facial lacerations -CT brain without contrast shows no acute intracranial changes -Continue to investigate when patient is more oriented about cause of facial lacerations - Acetaminophen as needed for mild pain/fever/headache - Bowel regimen as needed - Antiemetic as needed Patient admitted under inpatient status with expected length of stay > 2 midnights for severity of present symptoms, complexities of treatment plan and risk for adverse event . Resuscitation Status: CPR: Attempt Resuscitation Attending Statement The patient was seen and examined together with Dr. Betts on 04/23/2016 and I agree with the history, exam and plan as outlined in the note above. . Krupa Betts DO Apr 23, 2016 13:52 Francois Caballero MD Apr 23, 2016 18:28
[2016-04-23 16:14] LABS: Magnesium 2.1 mg/dL (1.6-2.6); Phosphorus 2.7 mg/dL (2.5-4.9)
[2016-04-24] VITALS (7 sets, daily range): BP systolic 115–150; BP diastolic 78–95; PULSE 78–94; RESP 17–20; O2SAT 96–99
[2016-04-24 04:24] LABS: BASOPHILS % (AUTO) 0.2 % (0-3); EOSINOPHILS % (AUTO) 4.2 % (0-5); MONOCYTES % (AUTO) 4.7 % (4-12); Mean Corpuscular Hemoglobin 32.6 pg (27.0-35.0); Mean Corpuscular Volume 93.8 fL (81-100); NEUTROPHILS % (AUTO) 50.3 % (40-74); Platelet Count 147 bil/L (150-400)
--- NOTE | 2016-04-24 05:06 | NUR ---
CIWA: CIWA score overnight 13-16. 10mg IV Valium given per protocol- initially pt very restless, sweaty and agitated. Around 0300 pt settling in and starting to sleep. Sp02 90s on RA- monitiored via BUSINESS RECORDS MANAGER.
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
[2016-04-24] MEDS: Multivit-Miner-Folic Acid-Iron Tablet PO SCH (08:57)
[2016-04-24] MEDS: Heparin 5,000 Unit/mL Inj SUBQ SCH ×2 (09:04→17:56)
--- NOTE | 2016-04-24 13:47 | PCM.PNMED ---
Subjective Date of Service Apr 24, 2016 Iván Goodwin is a 55 year old female with Depression, suicidal ideation, and Alcohol abuse with prior withdrawal seizures presents to [facility] emergency department requesting assistance with alcohol detox. CIWA score 13-16 overnight. This morning, she complains of lower quadrant abdominal cramping, dysuria, and urinary frequency. She continues to be anxious, agitated, and tremulous. She is oriented to person and to place. She reports that she had diarrhea initially but not today. Exam Vital Signs Vital Sign - Last Date Time Temp Pulse Resp B/P Pulse Ox O2 Delivery O2 Flow Rate FiO2 04/24/16 13:29 37.0 85 18 115/78 97 Room Air 04/23/16 11:56 2.00 Intake and Output 04/23/16 04/23/16 04/24/16 Cumulative From/Thru 15:00 23:00 07:00 04/23/16 01:38 - 04/24/16 05:34 Intake Total 2351 ml 800 ml 4317 ml Output Total 1850 ml 1450 ml 3300 ml Balance 501 ml -650 ml 1017 ml Intake Oral 1300 ml 450 ml 1750 ml IV Total 1051 ml 350 ml 2567 ml Output Urine Total 1850 ml 1450 ml 3300 ml # Voids 2 4 # Bowel Movements 6 6 Exam General: Awake and drowsy, Oriented to person and to time, Disoriented to place , Cooperative Eyes: PERRLA, Scleral Anicteric Mouth: Mouth Normal, Mucous Membranes Moist/[place] Neck: Supple, no Thyromegaly, trachea central. Chest & Lungs: Clear to auscultation & percussion, No adventitious breath sounds, no crackles, no wheeze Cardiovascular: Normal S1, Normal S2, No Murmurs/Rubs/Gallops, Regular Rate/ Rhythm, Murmur, Other (No JVD, no peripheral edema) Pulses: Radial (present and equal), Dorsalis Pedi (present and equal) Abdomen: Mild diffuse lower quadrant tenderness. Soft, Non-distended, Normoactive bowel tones. Musculoskeletal: Unremarkable. Normal range of motion, no swollen or erythematous joints Extremities: No edema, no cyanosis, no clubbing. Skin: No rashes. Warm and dry, no erythematous areas Neurological: Tremor bilaterally. Grossly neurologically intact, has generalized weakness, Normal Speech, Sensation Intact Lymphatic: Lymph nodes Cervical and Axillary not palpable. IVs and Medications Medications Reviewed: Medications were reviewed in detail Lab and Diagnostics Result Diagram: 04/24/1640504/24/16405 Assessment & Plan Shira Goodwin is a 55 year old homeless female Alcohol abuse, bronchitis, and asthma who presents to the ED via EMS due to severe EtOH intoxication. Admitted for acute alcohol intoxication and withdrawal. She is requesting assistance with detox placement 1. Acute alcohol withdrawal with delirium tremens. Present on admission. History of alcohol withdrawal seizures. Multiple evaluations for Alcohol intoxication and withdrawal episodes. - Thiamine, Folate supplemented - Case Management referral - CIWA protocol started and continued. Made PO Valium available as an alternative to IV Valium if IV access is not adequate. 2. Abdominal pain, acute. Active -Patient reports lower abdominal cramping with associated dysuria and urinary frequency. Possible UTI or secondary to diarrhea -UA ordered and did not show signs of UTI. -Consider abdominal imaging tomorrow if abdominal pain continues -Continue to monitor 3. Diarrhea, acute. Present on admission. Improving. - Clostridium difficile PCR ordered - Pepto-Bismol as needed 4. Hypokalemia, acute. Improved. -Replenished with 10 meq potassium chloride 5. Hypernatremia, acute. Present on admission. Improved. - Secondary to dehydration. - Stopped Normal saline at 100 ml/hr 6. Asthma, chronic. No exacerbation noted - Hold home albuterol inhaler. 7. Chronic back pain and scoliosis - Hold home oxycodone for now as patient does not report pain 8. Restless leg syndrome/Depression and anxiety - Hold home Ativan while on Valium protocol - Add Xanax 0.5 mg TID if anxiety worsens - Continue Mirapex 9. Nicotine Dependence Cessation discussed and encouraged - Nicotine patch when requested 10. Facial lacerations -CT brain without contrast shows no acute intracranial changes -Continue to investigate when patient is more oriented about cause of facial lacerations - Acetaminophen as needed for mild pain/fever/headache - Bowel regimen as needed - Antiemetic as needed disposition:discharge in 2-3 days Resuscitation Status: CPR: Attempt Resuscitation Attending Statement patient was seen and examined with Dr Betts on 04/24/16 ,I agree with the history,exam ,assessment and plan as outlined above Krupa Betts DO Apr 24, 2016 13:46 Francois Caballero MD Apr 24, 2016 22:39
--- NOTE | 2016-04-24 14:36 | NUR ---
CIWA/Abdominal pain Pt CIWA score 17-23 for nausea, anxiety, tremors, restlessness, sweaty, headache and visual disturbances. Per protocol 10 mg IV push valium given with some relief. Pt able to sleep from 1000 until 1250. Pt c/o lower abdominal pain. States that it feels crampy. MD aware and UA ordered.
[2016-04-24] MEDS: 0.9% Sodium Chloride 1,000 ML IV SCH (15:17)
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
[2016-04-24 17:15] LABS: APPEARANCE,URINE CLEAR (CLEAR,HAZY); COLOR,URINE YELLOW (YELLOW); OCCULT BLOOD,URINE NEGATIVE (NEGATIVE); UROBILINOGEN,URINE NORMAL (NORMAL)
[2016-04-24] MEDS: ALPRAZolam 0.5 mg Tablet PO PRN (23:02)
[2016-04-25] MEDS: Heparin 5,000 Unit/mL Inj SUBQ SCH ×2 (01:18→07:53)
[2016-04-25 03:57] VITALS: BP 122/80; PULSE 85; RESP 19; O2SAT 96
[2016-04-25 05:12] LABS: BASOPHILS % (AUTO) 0.2 % (0-3); EOSINOPHILS % (AUTO) 4.7 % (0-5); MONOCYTES % (AUTO) 4.5 % (4-12); Mean Corpuscular Hemoglobin 32.2 pg (27.0-35.0); Mean Corpuscular Volume 93.2 fL (81-100); Platelet Count 129 bil/L (150-400)
[2016-04-25 05:14] VITALS: PULSE 92
[2016-04-25 05:30] LABS: Phosphorus 3.4 mg/dL (2.5-4.9)
--- NOTE | 2016-04-25 05:46 | NUR ---
CIWA: CIWA between 14-19 overnight. PO Valium given as needed q1 hr for CIWA greater then 10. Pt cooperative but anxious/ restless. Vitals stable, sp02 90s on RA- Tele SR increasing to low 100s with activity.
[2016-04-25 07:41] VITALS: BP 102/75; PULSE 81; RESP 16; O2SAT 94
[2016-04-25] MEDS: ALPRAZolam 0.5 mg Tablet PO PRN (07:53)
[2016-04-25] MEDS: Multivit-Miner-Folic Acid-Iron Tablet PO SCH (07:53)
[2016-04-25 10:55] VITALS: BP 112/81; PULSE 90; O2SAT 98
--- NOTE | 2016-04-25 13:54 | NUR ---
Social Work: Discharge/AMA D: Pt discussed in am rounds. Pt is not medically stable for discharge and still experiencing CIWA symptoms and scores between 9-10. PROP MAKER received information from bedside RN that pt is attempting to leave AMA and requesting assistance to confirm discharge plan and options. PROP MAKER, bedside RN and MD met with pt at bedside. Pt states she wants to leave AMA as her room and staff are anxiety provoking to her. PROP MAKER and MD attempted to work through the concerns pt was describing however pt remains adamant that she is leaving today. PROP MAKER and MD explained the risks associated with leaving AMA especially given her current situation. Pt was able to clearly express understanding of these risks with cognition and decision making abilities is in tact. Pt expressing interest in going to [facility]. PROP MAKER spoke with [facility] who states they do not have beds available and will likely not have anything until Friday. PROP MAKER reviewed options with the pt. She states that she is going "home" and further describes this as an apartment [address] Pt previously indicated to case management that she was homeless. Pt confirms that she is not currently suicidal, homicidal and not experiencing auditory or visual hallucinations. Pt was provided with community resources along with outpatient chemical dependency counseling and assessment services. A: Pt who is I at baseline. P: Pt is choosing to leave AMA; risks have been explained to pt by MARKO and . Pt is not suicidal, homicidal or gravely disabled due to mental illness. Pt provided with CD and community resources including 16/09 crisis phone number . MARKO Brisneo
--- NOTE | 2016-04-25 14:01 | PCM.DIMED ---
Discharge Instructions Date of Service Apr 25, 2016 Dates of Hospitalization Apr 22, 2016 at 23:59 Discharge Diagnosis Discharge Diagnosis 1. Left against medical advice. 2. Acute alcohol withdrawal with delirium tremens. 3. Abdominal pain, acute. 4. Diarrhea, acute. 5. Hypokalemia, acute. 6. Hypernatremia, acute. 7. Asthma, chronic. 8. Chronic back pain and scoliosis 9. Restless leg syndrome/Depression and anxiety 10. Nicotine Dependence 11. Facial lacerations Patient Instructions Patient left against medical advice after discussion with social work, nursing staff, and myself about potential risks of leaving including injury or trauma such as falls, broken bones, or head trauma. Krupa Betts DO Apr 25, 2016 14:01
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
--- NOTE | 2016-04-25 15:06 | NUR ---
Discharge/AMA Pt had used call light to ask this RN for her Valium. At this time she also asked if it was ok for her to leave AMA because she was too anxious cooped up in her room. This RN made a plan with her to give her PO Valium and to take her for a walk around the unit, to which she seemed agreeable. Her CIWA score was assessed at 11 and she was given PO 10 mg of Valium. Approximately 5 minutes later the patient turned on her call light and when this RN went to her room she announced that she wanted to leave AMA. Nurse Alana, and HYDRO ELECTRIC STATION OPERATOR were all called to room and the concerns of leaving AMA were discussed. Pt was asked what could be done to help her with her goals of completing detox safely. She stated that there was nothing that staff could do. Pt was told about risks of falling due to the medications that she was taking, the possibility of seizures due to her alcohol withdrawal, and the risk of her resuming her substance abuse. Pt still wanted to leave AMA. HYDRO ELECTRIC STATION OPERATOR asked pt if she had a plan. Pt stated that she wanted to go to the crisis center, if there were not beds available then she would go home until there was a bed available. Pt signed form that she was leaving AMA, her IV was dc'd intact, telemetry was removed and tech was notified. Pt's belongings were gathered and given to pt. Pt was escorted from the unit.
== END 2016-04-25 14:11 | disposition left against medical advice (07) | DRG 894 ==
LOC: SED 18:09 → PCC 23:59
PROVIDERS: ADMIT Hospitalist; ATTEND Hospitalist
DX: F10.231 Alcohol dependence with withdrawal delirium (principal); E87.0 Hyperosmolality and hypernatremia; Z95.1 Presence of aortocoronary bypass graft; F17.210 Nicotine dependence, cigarettes, uncomplicated; E86.0 Dehydration; J45.909 Unspecified asthma, uncomplicated; M54.9 Dorsalgia, unspecified; M41.9 Scoliosis, unspecified; G25.81 Restless legs syndrome; F32.9 Major depressive disorder, single episode, unspecified; F41.9 Anxiety disorder, unspecified; R19.7 Diarrhea, unspecified; E87.6 Hypokalemia; Z91.19 Patient's noncompliance with other medical treatment and regimen; R10.9 Unspecified abdominal pain; S01.81XD Laceration without foreign body of other part of head, subsequent encounter